=== PATIENT | female | born 1965 | race Caucasian/White ===

== ENCOUNTER → 2017-10-01 | Outpatient (CLI) | payer BC ==
--- NOTE | 2017-10-03 10:49 | MM ---
Reason for exam: screening (asymptomatic). Last mammogram was performed 1 year and 1 month ago. History: Took hormonal contraceptives for 3 years. Physical Findings: A clinical breast exam by your physician is recommended on an annual basis and results should be correlated with mammographic findings. MG Screening Mammo w CAD Bilateral CC and MLO view(s) were taken. Prior study comparison: August 21, 2016, bilateral MG screening mammo w CAD. August 14, 2015, bilateral MG screening mammo w CAD. There are scattered fibroglandular densities. There is chronic nodularity in the left breast. No significant changes when compared with prior studies. ASSESSMENT: Benign, BI-RAD 2 RECOMMENDATION: Routine screening mammogram of both breasts in 1 year.
== END | disposition home or self-care (01) ==
LOC: RADMAMWWP 13:52
PROVIDERS: ATTEND Obstetrics & Gynecology
DX: Z12.31 Encounter for screening mammogram for malignant neoplasm of breast (principal); Z13.820 Encounter for screening for osteoporosis

== ENCOUNTER → 2018-11-02 | Outpatient (CLI) | payer OTHER ==
--- NOTE | 2018-11-02 15:21 | BD ---
EXAMINATION TYPE: Axial Bone Density DATE OF EXAM: 11/02/2018 COMPARISON: NONE CLINICAL HISTORY: Height: 64 Weight: 196.0 FRAX RISK QUESTIONS: Alcohol (3 or more units per day): no Family History (Parent hip fracture): no Glucocorticoids (More than 3mos): no (Ex: prednisone, prednisolone, methylprednisolone, dexamethasone, and hydrocortisone). History of Fracture in Adulthood: no Secondary Osteoporosis: 1. Type 1 Diabetes: no 2. Hyperthyroidism: no 3. Menopause before 45: no 4. Malnutrition: no 5. Chronic liver disease: no Rheumatoid Arthritis: no Current Tobacco Use: yes RISK FACTORS HISTORY OF: Surgery to Spine/Hip(right/left)/Wrist (right/left): c-spine When: 15 years ago Family History of Osteoporosis: yes Active: yes Diet low in dairy products/other sources of calcium: yes Postmenopausal woman: age 51 MEDICATIONS: zocor, zoloft, adapex, prilosec, claratin d, vit d, bladder meds Additional History: EXAM MEASUREMENTS: Bone mineral densitometry was performed using the [employer] System. Bone mineral density as measured about the Lumbar spine is: ----- L1-L4(G/cm2): 1.306 T Score Values are as follows: ----- L2: 0.2 ----- L3: 0.6 ----- L4: 2.3 ----- L1-L4: 1.0 Bone mineral density : baseline Bone mineral density about the R hip (g/cm2): 1.037 Bone mineral density about the L hip (g/cm2): 1.019 T Score values are as follows: -----R Neck: 0.0 -----L Neck: -0.1 -----R Total: 0.7 -----L Total: 0.3 Bone mineral density : baseline IMPRESSION: No evidence for osteoporosis or osteopenia. NOTE: T-SCORE=SD OF THE YOUNG ADULT MEAN.
--- NOTE | 2018-11-03 14:40 | MM ---
Reason for exam: screening (asymptomatic). Last mammogram was performed 1 year and 1 month ago. History: Took hormonal contraceptives for 3 years. Physical Findings: A clinical breast exam by your physician is recommended on an annual basis and results should be correlated with mammographic findings. MG 3D Screening Mammo W/Cad Bilateral CC and MLO view(s) were taken. Prior study comparison: October 01, 2017, bilateral MG screening mammo w CAD. August 21, 2016, bilateral MG screening mammo w CAD. The breast tissue is heterogeneously dense. This may lower the sensitivity of mammography. There is chronic nodularity in the left breast. There is no discrete abnormality. ASSESSMENT: Negative, BI-RAD 1 RECOMMENDATION: Routine screening mammogram of both breasts in 1 year.
== END | disposition home or self-care (01) ==
LOC: RADMAMWWP 06:51
PROVIDERS: ATTEND Obstetrics & Gynecology
DX: Z12.31 Encounter for screening mammogram for malignant neoplasm of breast (principal); Z13.820 Encounter for screening for osteoporosis
CPT/HCPCS: 77063; 77067; 77080

== ENCOUNTER 2019-08-04 08:56 | Day surgery (SDC) | payer OTHER ==
[2019-08-03 09:32] VITALS: BMI 34.0
[~2019-08-04 08:56] MED LIST: LACTATED RINGERS 1,000 ML IV SCH; LIDOCAINE 1% 20 ML VIAL (10MG/ML) FOR IV START INTRADERMA PRN
[2019-08-04 09:08] VITALS: RESP 16; TEMP 97.4
[2019-08-04] MEDS ORDERED: PROPOFOL 10 MG/ML 20 ML VIAL IV ONE (09:19)
[2019-08-04] MEDS ORDERED: LIDOCAINE 1% INJ 10MG/ML (20 ML MDV) ONE (09:19)
--- NOTE | 2019-08-04 09:22 | P.GSHP ---
History of Present Illness H&P Date: 08/04/19 Chief Complaint: Colon polyps, screening 54-year-old female here today for colonoscopy. Last colonoscopy 5 years ago. Patient had a transverse colon polyp and rectal polyp. The transverse colon polyp was an adenoma. Patient otherwise doing well. No bowel complaints. Past Medical History Past Medical History: GERD/Reflux, Hyperlipidemia Additional Past Medical History / Comment(s): seasonal allergies History of Any Multi-Drug Resistant Organisms: None Reported Past Surgical History: Hernia Repair, Tubal Ligation, Uterine Ablation Additional Past Surgical History / Comment(s): neck surgery c5,6,7 with fusion plate and screws Past Anesthesia/Blood Transfusion Reactions: Motion Sickness, Postoperative Nausea & Vomiting (PONV) Smoking Status: Current every day smoker - Past Family History Mother Family Medical History: CVA/TIA Brother(s) Family Medical History: Blood Disorder Additional Family Medical History / Comment(s): hx hemorrhaging and brain bleeds Medications and Allergies Home Medications Medication Instructions Recorded Confirmed Type Loratadine-Pseudoeph 10-240 mg 1 each PO DAILY 05/11/14 08/04/19 History [Claritin-D 24 Hour] Omeprazole [PriLOSEC] 1 tab PO DAILY 05/11/14 08/03/19 History Sertraline [Zoloft] 100 mg PO DAILY 05/11/14 08/03/19 History Simvastatin [Zocor] 1 tab PO DAILY 05/11/14 08/03/19 History Oxybutynin Chloride [Oxybutynin 10 mg PO DAILY 08/03/19 08/03/19 History Chloride ER] Phentermine/Topiramate [Qsymia 1 cap PO QAM 08/03/19 08/03/19 History 11.25 mg-69 mg Capsule] Allergies Allergy/AdvReac Type Severity Reaction Status Date / Time Sulfa (Sulfonamide Allergy Rash/Hives Verified 08/04/19 09:06 Antibiotics) Surgical - Exam Vital Signs Temp Pulse Resp BP Pulse Ox 97.4 F L 67 16 156/88 99 08/04/19 09:06 08/04/19 09:06 08/04/19 09:06 08/04/19 09:06 08/04/19 09:06 Physical exam: General: Well-developed, well-nourished HEENT: Normocephalic, sclerae nonicteric Abdomen: Nontender, nondistended Extremities: No edema Neuro: Alert and oriented Assessment and Plan (1) Colon cancer screening Narrative/Plan: Will proceed with colonoscopy at this time Current Visit: No Status: Acute Code(s): Z12.11 - ENCOUNTER FOR SCREENING FOR MALIGNANT NEOPLASM OF COLON SNOMED Code(s): 444277316
--- NOTE | 2019-08-04 09:40 | P.PCN ---
Date of Procedure: 08/04/19 Procedure(s) Performed: PREOPERATIVE DIAGNOSIS: Screening, history of polyps POSTOPERATIVE DIAGNOSIS: sigmoid colon polyp, rectal polyps PROCEDURE: Colonoscopy With snare polypectomy ANESTHESIA: MAC SURGEON: Kenji Whalen M.D. SPECIMENS: polyps ENDOSCOPIC PROCEDURE: The patient was placed on the endoscopy table in the left decubitus position. The Olympus colonoscope was inserted into the anus and passed under direct visualization to the base of the cecum. The appendiceal orifice was visualized. From that point the scope was slowly withdrawn inspecting all surfaces carefully. There were no neoplastic inflammatory or polypoid lesions throughout the cecum, ascending, transverse, and descending colon. In the sigmoid colon there was a small polyp that was removed using a sterile cautery technique. In the rectum there were multiple superficial flat hyperplastic appearing polyps. 5-6 of these were removed using the snare with cautery technique. The remainder of the rectum was normal. The patient had extensive left-sided diverticulosis with some hypertrophy tortuosity and spasticity noted. Digital rectal examination was normal. The patient was taken to the recovery room in stable condition per anesthesia guidelines. RECOMMENDATIONS: await biopsy results. Anticipate follow-up colonoscopy 5 years. If rectal polyps are adenomatous may require short-term study.
[2019-08-04 09:56] VITALS: BP 118/80; PULSE 59
== END 2019-08-04 10:35 | disposition home or self-care (01) ==
LOC: ORWHC2ENDO 08:56
PROVIDERS: ATTEND Surgery
DX: Z12.11 Encounter for screening for malignant neoplasm of colon (principal); D12.5 Benign neoplasm of sigmoid colon; K62.1 Rectal polyp; K57.30 Diverticulosis of large intestine without perforation or abscess without bleeding; K58.9 Irritable bowel syndrome, unspecified; Q43.9 Congenital malformation of intestine, unspecified; E78.5 Hyperlipidemia, unspecified; F17.210 Nicotine dependence, cigarettes, uncomplicated; K21.9 Gastro-esophageal reflux disease without esophagitis; Z79.899 Other long term (current) drug therapy; Z86.010 Personal history of colon polyps; Z88.2 Allergy status to sulfonamides; J30.2 Other seasonal allergic rhinitis; Z98.51 Tubal ligation status; Z98.890 Other specified postprocedural states; Z98.1 Arthrodesis status; Z82.0 Family history of epilepsy and other diseases of the nervous system; Z83.2 Family history of diseases of the blood and blood-forming organs and certain disorders involving the immune mechanism
CPT/HCPCS: 88305; 45385; J2001; J2704

== ENCOUNTER → 2019-12-08 | Outpatient (CLI) | payer OTHER ==
--- NOTE | 2019-12-10 13:24 | MM ---
Reason for exam: screening (asymptomatic). Last mammogram was performed 1 year and 1 month ago. History: Patient is postmenopausal. Took hormonal contraceptives for 3 years. Physical Findings: A clinical breast exam by your physician is recommended on an annual basis and results should be correlated with mammographic findings. MG 3D Screening Mammo W/Cad Bilateral CC and MLO view(s) were taken. Prior study comparison: November 02, 2018, bilateral MG 3d screening mammo w/cad. October 01, 2017, bilateral MG screening mammo w CAD. There are scattered fibroglandular densities. There is chronic nodularity bilaterally. No significant changes when compared with prior studies. ASSESSMENT: Negative, BI-RAD 1 RECOMMENDATION: Routine screening mammogram of both breasts in 1 year.
== END | disposition home or self-care (01) ==
LOC: RADMAMWWP 15:30
PROVIDERS: ATTEND Obstetrics & Gynecology
DX: Z12.31 Encounter for screening mammogram for malignant neoplasm of breast (principal)
CPT/HCPCS: 77063; 77067

== ENCOUNTER → 2021-01-25 | Outpatient (CLI) | payer OTHER ==
--- NOTE | 2021-01-29 10:47 | MM ---
Reason for exam: screening (asymptomatic). Last mammogram was performed 1 year and 2 months ago. History: Patient is postmenopausal. Took hormonal contraceptives for 3 years. Physical Findings: A clinical breast exam by your physician is recommended on an annual basis and results should be correlated with mammographic findings. MG 3D Screening Mammo W/Cad Bilateral CC and MLO view(s) were taken. Prior study comparison: December 08, 2019, bilateral MG 3d screening mammo w/cad. November 02, 2018, bilateral MG 3d screening mammo w/cad. There are scattered fibroglandular densities. There is chronic nodularity bilaterally. No significant changes when compared with prior studies. ASSESSMENT: Benign, BI-RAD 2 RECOMMENDATION: Routine screening mammogram of both breasts in 1 year.
== END | disposition home or self-care (01) ==
LOC: RADMAMWWP 16:33
PROVIDERS: ATTEND Obstetrics & Gynecology
DX: Z12.31 Encounter for screening mammogram for malignant neoplasm of breast (principal); Z78.0 Asymptomatic menopausal state
CPT/HCPCS: 77063; 77067

== ENCOUNTER → 2021-10-25 | Outpatient (CLI) | payer BC ==
--- NOTE | 2021-10-25 15:35 | P.HPBAR ---
Bariatric H&P - History & Physicial H&P Date: 10/25/21 History & Physicial: Visit/CC: Patient initial contact: Initial weight: Initial weight in pounds: Height: 5 ft 4 in Initial BMI: Last weight: Current weight: 102.058 kg Current weight in pounds: Current BMI: [place] body weight (based on NIH guidelines): Excess body weight loss: The patient is a 56 year-old F who presents for Bariatric Assessment. Patient presents today to discuss surgical treatment of obesity. Patient is interested in sleeve gastrectomy. Current BMI 38.6. Patient suffers from hypertension, hypercholesterolemia, GERD, neck arthritis. Patient takes Prilosec daily and has adequate control of her heartburn symptoms. Denies DVT or dysphagia in the past. Patient quit smoking cigarettes 2 months ago. Patient's surgical history includes neck fusion tubal ligation inguinal hernia and uterine ablation. No cardiac history. Review of Systems The patient denies any acute changes in vision or hearing, no dysphagia or odynophagia, no chest pain or shortness of breath, no dysuria or hematuria, no headache, no runny nose, no rectal bleeding or melena, no unexplained weight loss Past Medical History Past Medical History: GERD/Reflux, Hyperlipidemia Additional Past Medical History / Comment(s): seasonal allergies History of Any Multi-Drug Resistant Organisms: None Reported Past Surgical History: Hernia Repair, Tubal Ligation, Uterine Ablation Additional Past Surgical History / Comment(s): neck surgery c5,6,7 with fusion plate and screws Past Anesthesia/Blood Transfusion Reactions: Motion Sickness, Postoperative Nausea & Vomiting (PONV) Past Psychological History: Anxiety, Depression Past Alcohol Use History: Occasional Additional Past Alcohol Use History / Comment(s): smoker 25 years <1ppd Past Drug Use History: None Reported - Past Family History Mother Family Medical History: CVA/TIA Brother(s) Family Medical History: Blood Disorder Additional Family Medical History / Comment(s): hx hemorrhaging and brain bleeds Surgical - Exam Physical exam: General: Well-developed, well-nourished HEENT: Normocephalic, sclerae nonicteric Abdomen: Nontender, nondistended Extremities: No edema Neuro: Alert and oriented Bariatric Assessment & Plan (1) Severe obesity (BMI 35.0-39.9) with comorbidity Narrative/Plan: 56-year-old female with severe obesity and associated coronary disease. Both sleeve gastrectomy and gastric bypass surgical options reviewed in detail with the patient including the expected weight loss and associated risks. Patient remains interested in sleeve gastrectomy. We discussed the increased risk of postoperative reflux because of her current history of GERD symptoms. Patient is aware that severe reflux post-sleeve gastrectomy is rare but possible and could necessitate conversion to gastric bypass. The importance of continuing the patient's smoking cessation was reviewed. We'll obtain medical clearance for the surgery and we'll proceed with upper endoscopy in the near future. Status: Acute Bariatric Checklist Checklist: Plan: Checklist: EGD: 1. Hiatal hernia: 2. H. Pylori: HgbA1c: Vitamin D: Smoking: Current every day smoker Primary care physician referral: Psychiatry clearance: Cardiology clearance: Sleep study: Diet journal: VTE risk score: VTE risk level: Rehab needs at discharge:
[2021-10-25 15:46] VITALS: BP 141/90; PULSE 66; TEMP 97.9; BMI 38.6
[2021-10-25 16:56] LABS: HCT 44.1 % (34.0-46.0); HGB 13.8 gm/dL (11.4-16.0); MCH 31.6 pg (25.0-35.0); MCHC 31.4 g/dL (31.0-37.0); MCV 100.6 fL (80.0-100.0); Platelet Count 285 k/uL (150-450); RBC 4.38 m/uL (3.80-5.40); RDW 13.1 % (11.5-15.5); WBC 8.1 k/uL (3.8-10.6)
[2021-10-25 23:46] LABS: African American GFR (CKD) 81.8 (60.0-200.0); Albumin 4.5 g/dL (3.8-4.9); Albumin/Globulin Ratio 1.58 (1.60-3.17); Anion Gap 12.6 mmol/L (10.00-18.00); BUN/Creat Ratio 15.91 Ratio (12.00-20.00); Blood Urea Nitrogen 14.3 mg/dL (9.0-27.0); Calcium 9.6 mg/dL (8.7-10.3); Carbon Dioxide 25.2 mmol/L (20.0-27.5); Globulin 2.9 g/dL (1.6-3.3); Non-African American GFR(CKD) 70.6 (60.0-200.0); Potassium 4.4 mmol/L (3.5-5.5); Total Bilirubin 0.2 mg/dL (0.30-1.20); Total Protein 7.4 g/dL (6.2-8.2)
[2021-10-26 00:19] LABS: Folate, Serum 10.2 ng/mL (4.40-31.00)
== END ==
LOC: BARWHC3 14:56
PROVIDERS: ATTEND Surgery
DX: E66.01 Morbid (severe) obesity due to excess calories (principal); E78.5 Hyperlipidemia, unspecified; F41.9 Anxiety disorder, unspecified; F32.A Depression, unspecified; F17.210 Nicotine dependence, cigarettes, uncomplicated; E78.00 Pure hypercholesterolemia, unspecified; Z68.38 Body mass index [BMI] 38.0-38.9, adult; Z88.2 Allergy status to sulfonamides
CPT/HCPCS: 80053; 82306; 82607; 82746; 83540; 84425; 85027; 99211

== ENCOUNTER 2022-02-26 10:08 | Day surgery (SDC) | payer BC ==
[2022-02-25 10:38] VITALS: BMI 37.0
[~2022-02-26 10:08] MED LIST changes: +LIDOCAINE 1% (10MG/ML) FOR IV START INTRADERMA PRN; -LIDOCAINE 1% 20 ML VIAL (10MG/ML) FOR IV START INTRADERMA PRN
[2022-02-26 10:44] VITALS: TEMP 98
[2022-02-26] MEDS ORDERED: LIDOCAINE 2% INJ 20 MG/ML (2 ML VIAL) ONE (11:16)
[2022-02-26] MEDS ORDERED: PROPOFOL 10 MG/ML 20 ML VIAL IV ONE (11:16)
--- NOTE | 2022-02-26 11:17 | P.GSHP ---
History of Present Illness H&P Date: 02/26/22 Chief Complaint: GERD, presurgical 56-year-old female here today for upper endoscopy. Patient with history of reflux and is being evaluated for possible sleeve gastrectomy. No dysphagia. Past Medical History Past Medical History: GERD/Reflux, Hyperlipidemia, Hypertension Additional Past Medical History / Comment(s): seasonal allergies History of Any Multi-Drug Resistant Organisms: None Reported Past Surgical History: Hernia Repair, Tubal Ligation, Uterine Ablation Additional Past Surgical History / Comment(s): neck surgery c5,6,7 with fusion plate and screws Past Anesthesia/Blood Transfusion Reactions: Motion Sickness, Postoperative Nausea & Vomiting (PONV) Past Psychological History: Anxiety, Depression Smoking Status: Current some day smoker Past Alcohol Use History: Occasional Past Drug Use History: None Reported - Past Family History Mother Family Medical History: CVA/TIA Brother(s) Family Medical History: Blood Disorder Additional Family Medical History / Comment(s): hx hemorrhaging and brain bleeds Medications and Allergies Home Medications Medication Instructions Recorded Confirmed Type Loratadine-Pseudoeph 10-240 mg 1 each PO DAILY 05/11/14 02/25/22 History [Claritin-D 24 Hour] Omeprazole [PriLOSEC] 1 tab PO DAILY 05/11/14 02/25/22 History Sertraline [Zoloft] 2 tab PO DAILY 05/11/14 02/25/22 History Simvastatin [Zocor] 1 tab PO DAILY 05/11/14 02/25/22 History Oxybutynin Chloride [Oxybutynin 10 mg PO DAILY 08/03/19 02/25/22 History Chloride ER] hydroCHLOROthiazide 25 mg PO DAILY 10/25/21 02/25/22 History Allergies Allergy/AdvReac Type Severity Reaction Status Date / Time Sulfa (Sulfonamide Allergy Rash/Hives Verified 02/26/22 10:38 Antibiotics) Surgical - Exam Vital Signs Temp Pulse Resp BP Pulse Ox 98 F 77 14 157/87 97 02/26/22 10:41 02/26/22 10:41 02/26/22 10:41 02/26/22 10:41 02/26/22 10:41 Physical exam: General: Well-developed, well-nourished HEENT: Normocephalic, sclerae nonicteric Abdomen: Nontender, nondistended Extremities: No edema Neuro: Alert and oriented Assessment and Plan (1) GERD (gastroesophageal reflux disease) Narrative/Plan: Will proceed with upper endoscopy Current Visit: Yes Status: Acute Code(s): K21.9 - GASTRO-ESOPHAGEAL REFLUX DISEASE WITHOUT ESOPHAGITIS SNOMED Code(s): 051196141
--- NOTE | 2022-02-26 11:26 | P.PCN ---
Date of Procedure: 02/26/22 Procedure(s) Performed: Preoperative Dx: GERD, presurgical Postoperative Dx: Mild gastritis, hiatal hernia Procedure: EGD with Bx Anesthesia: Sedation Endoscopist: Dr. Whalen Specimens: Antrum Endoscopic Procedure: The patient was on the endoscopy table in the left decubitus position. The Olympus gastroscope was inserted into the oropharynx and passed under direct visualization to the region of the third portion of the duodenum. From that point the scope was slowly withdrawn inspecting all surfaces carefully. There were no neoplastic inflammatory or polypoid lesions throughout the duodenum. The pylorus was widely patent. The stomach was carefully inspected. There was mild gastritis. A biopsy of the antrum took place to rule out H. pylori. Retroflexion revealed a small sliding hiatal hernia. The GE junction was present 1.5-2 cm above the diaphragmatic hiatus. The remainder the esophagus was examined appeared normal. The patient was then taken to the recovery room in stable condition per anesthesia guidelines. Recommendations: Resume diet. Continue bariatric workup. Continue smoking cessation attempts.
[2022-02-26 11:35] VITALS: RESP 16
[2022-02-26 11:51] VITALS: BP 139/82; PULSE 65
== END 2022-02-26 12:03 | disposition home or self-care (01) ==
LOC: ORWHC2ENDO 10:08
PROVIDERS: ATTEND Surgery
DX: K29.50 Unspecified chronic gastritis without bleeding (principal); K21.00 Gastro-esophageal reflux disease with esophagitis, without bleeding; K44.9 Diaphragmatic hernia without obstruction or gangrene; E78.5 Hyperlipidemia, unspecified; F17.200 Nicotine dependence, unspecified, uncomplicated; F32.A Depression, unspecified; F41.9 Anxiety disorder, unspecified; I10 Essential (primary) hypertension; Z88.2 Allergy status to sulfonamides
CPT/HCPCS: 43239; 88305; J2704; J2001

== ENCOUNTER → 2022-03-19 | Outpatient (CLI) | payer BC ==
[2022-03-19 14:56] VITALS: BP 128/69; PULSE 77; RESP 16; TEMP 98; BMI 38.2
--- NOTE | 2022-03-19 15:22 | P.BASOAP ---
Subjective Progress Note Date: 03/19/22 Principal diagnosis: Morbid obesity 56-year-old female returns after recent EGD. Upper endoscopy showed gastritis and small hiatal hernia. Patient has no new changes to her prior history and physical. She is still smoking at this time. States she is very close to quitting. She takes Prilosec daily. Objective - Vital Signs Vital signs: Vital Signs Temp 98 F 03/19/22 14:53 Pulse 77 03/19/22 14:53 Resp 16 03/19/22 14:53 BP 128/69 03/19/22 14:53 Pulse Ox FiO2 Intake & Output 03/18/22 03/19/22 03/19/22 18:59 06:59 18:59 Weight 101.151 kg - Exam Abdomen: Soft, nontender, nondistended Assessment/Plan (1) Severe obesity (BMI 35.0-39.9) with comorbidity Narrative/Plan: 56-year-old female with morbid obesity. Recent findings of gastritis and hiatal hernia. Surgical consent form reviewed in detail. All questions answered. We'll tentatively proceed with laparoscopic da Brayan-assisted sleeve gastrectomy with repair hiatal hernia, possible open. Patient will require preoperative nicotine testing. The risks of bleeding, infection, stenosis, stricture, leak, abscess, fistula formation, peritonitis, poor weight loss, reflux, vomiting, conversion to an open procedure, aborting sleeve gastrectomy, [place], PE, DVT, and were discussed. The patient understands and wishes to proceed. Plan: Date: 03/19/22 Initial Weight: 101.151 kg Initial BMI: 38.2 Current Weight: 101.151 kg Current BMI: 38.2 Type of Surgery: Total Volume in Band: Previous Volume: Volume Removed: Volume Added: Band Size:
== END ==
LOC: BARWHC3 14:40
PROVIDERS: ATTEND Surgery
DX: E66.01 Morbid (severe) obesity due to excess calories (principal); K29.70 Gastritis, unspecified, without bleeding; K44.9 Diaphragmatic hernia without obstruction or gangrene; Z68.38 Body mass index [BMI] 38.0-38.9, adult; Z88.2 Allergy status to sulfonamides
CPT/HCPCS: 99211

== ENCOUNTER → 2022-03-21 | Outpatient (CLI) | payer BC ==
--- NOTE | 2022-03-23 13:04 | MM ---
Reason for Exam: Screening (asymptomatic). Last mammogram was performed 1 year(s) and 2 month(s) ago. Patient History: Menarche at age 11. First Full-Term at age 28. Late child-bearing (after 28). Postmenopausal. Patient used Hormonal Contraceptives for 3 years. Risk Values: Dee 5 year model risk: 1.8%. NCI Lifetime model risk: 10.5%. Prior Study Comparison: 11/02/2018 Bilateral Screening Mammogram, [facility]. 12/08/2019 Bilateral Screening Mammogram, [facility]. 01/25/2021 Bilateral Screening Mammogram, [facility]. Tissue Density: There are scattered fibroglandular densities. Findings: Analyzed By CAD. Chronic nodularity right breast. There is no suspicious group of microcalcifications or new suspicious mass in either breast. Overall Assessment: Benign, BI-RAD 2 Management: Screening Mammogram of both breasts in 1 year. 1. Patient should continue monthly self breast exams. 2. A clinical breast exam by your physician is recommended on an annual basis and results should be correlated with mammographic findings. A negative mammogram should not preclude additional follow-up of suspicious palpable abnormalities. Electronically signed and approved by: Eleni Mercedes M.D. Radiologist
== END | disposition home or self-care (01) ==
LOC: RADMAMWWP 14:43
PROVIDERS: ATTEND Obstetrics & Gynecology
DX: Z12.31 Encounter for screening mammogram for malignant neoplasm of breast (principal); Z78.0 Asymptomatic menopausal state
CPT/HCPCS: 77063; 77067

== ENCOUNTER → 2022-03-25 | Outpatient (CLI) | payer BC ==
[2022-03-25 14:07] VITALS: BMI 37.9
== END ==
LOC: BARWHC3 08:37
PROVIDERS: ATTEND Surgery
DX: E66.01 Morbid (severe) obesity due to excess calories (principal); Z71.3 Dietary counseling and surveillance; F17.200 Nicotine dependence, unspecified, uncomplicated; Z68.37 Body mass index [BMI] 37.0-37.9, adult; Z88.2 Allergy status to sulfonamides
CPT/HCPCS: 97804

== ENCOUNTER 2022-06-03 06:19 | Inpatient (IN) | payer BC ==
[2022-05-30 14:35] VITALS: BMI 38.2
[~2022-06-03 06:19] MED LIST changes: +ACETAMINOPHEN TAB 500 MG TAB PO PRN; +DEXAMETHASONE SOD PHOSPHATE 4 MG/ML 1 ML VIAL IV ONE; +ENOXAPARIN 40 MG/0.4 ML SYRINGE SQ PRN; -LIDOCAINE 1% (10MG/ML) FOR IV START INTRADERMA PRN; +ONDANSETRON 4 MG/2 ML VIAL IVP ONE; +ONDANSETRON 4 MG/2 ML VIAL IVP PRN
[2022-06-03] MEDS ORDERED: BUPIVACAIN-EPI 0.25%-1:200,000 30 ML VIAL SQ ONE ×3 (07:27→08:07)
--- NOTE | 2022-06-03 07:35 | P.GSHP ---
History of Present Illness H&P Date: 06/03/22 Chief Complaint: Morbid obesity 57-year-old female presents for elective laparoscopic sleeve gastrectomy. Was first seen for weight loss surgery and October. Patient suffers from hypertension and hypercholesterolemia GERD and arthritis. Patient has history of tobacco use although quit late last year. Denies history of DVT or dysphagia. Recent EGD showed mild gastritis and small hiatal hernia. Past Medical History Past Medical History: Asthma, GERD/Reflux, Hyperlipidemia, Hypertension Additional Past Medical History / Comment(s): seasonal allergies,mild asthma per Dr Melida Whalen's medical clearance letter. History of Any Multi-Drug Resistant Organisms: None Reported Past Surgical History: Hernia Repair, Tubal Ligation, Uterine Ablation Additional Past Surgical History / Comment(s): neck surgery c5,6,7 with fusion plate and screws Past Anesthesia/Blood Transfusion Reactions: Motion Sickness, Postoperative Nausea & Vomiting (PONV) Additional Past Anesthesia/Blood Transfusion Reaction / Comment(s): no hx blood transfusion Smoking Status: Current some day smoker, Former smoker - Past Family History Mother Family Medical History: CVA/TIA Brother(s) Family Medical History: Blood Disorder Additional Family Medical History / Comment(s): hx hemorrhaging and brain bleeds- Medications and Allergies Home Medications Medication Instructions Recorded Confirmed Type Loratadine-Pseudoeph 10-240 mg 1 each PO DAILY 05/11/14 06/03/22 History [Claritin-D 24 Hour] Omeprazole [PriLOSEC] 20 mg PO QAM 05/11/14 06/03/22 History Sertraline [Zoloft] 200 mg PO QAM 05/11/14 06/03/22 History Simvastatin [Zocor] 40 mg PO HS 05/11/14 06/03/22 History Oxybutynin Chloride [Oxybutynin 10 mg PO HS 08/03/19 06/03/22 History Chloride ER] hydroCHLOROthiazide 25 mg PO QAM 10/25/21 06/03/22 History Allergies Allergy/AdvReac Type Severity Reaction Status Date / Time Sulfa (Sulfonamide Allergy Rash/Hives Verified 06/03/22 06:56 Antibiotics) Surgical - Exam Vital Signs Temp Pulse Resp BP Pulse Ox 97.0 F L 70 18 152/89 96 06/03/22 06:47 06/03/22 06:47 06/03/22 06:47 06/03/22 06:47 06/03/22 06:47 Physical exam: General: Well-developed, well-nourished HEENT: Normocephalic, sclerae nonicteric Abdomen: Nontender, nondistended Extremities: No edema Neuro: Alert and oriented Assessment and Plan (1) Severe obesity (BMI 35.0-39.9) with comorbidity Narrative/Plan: 57-year-old female with severe obesity and comorbidities. We'll proceed with laparoscopic da Brayan assisted sleeve gastrectomy with repair hiatal hernia, possible open at this time. The risks of bleeding, infection, stenosis, stricture, leak, abscess, fistula formation, peritonitis, poor weight loss, reflux, vomiting, conversion to an open procedure, aborting sleeve gastrectomy, [place], PE, DVT, and were discussed. The patient understands and wishes to proceed. Current Visit: No Status: Acute Code(s): E66.01 - MORBID (SEVERE) OBESITY DUE TO EXCESS CALORIES SNOMED Code(s): [id number]
[2022-06-03] MEDS ORDERED: GLYCOPYRROLATE 0.2 MG/ML 2 ML VIAL ONE (07:42)
[2022-06-03] MEDS ORDERED: fentaNYL (PF) 50 MCG/ML 2 ML AMP ONE (07:42)
[2022-06-03] MEDS ORDERED: hydrALAZINE HCL 20 MG/ML 1 ML VIAL ONE (07:42)
[2022-06-03] MEDS ORDERED: PROPOFOL 10 MG/ML 20 ML VIAL IV ONE (07:42)
[2022-06-03] MEDS ORDERED: NEOSTIGMINE 1 MG/ML 10 ML VIAL ONE (07:42)
[2022-06-03] MEDS ORDERED: ROCURONIUM 10 MG/ML (5 ML VIAL) IV ONE (07:42)
[2022-06-03] MEDS ORDERED: MIDAZOLAM 2 MG/2 ML VIAL ONE (07:42)
[2022-06-03] MEDS ORDERED: SUCCINYLCHOLINE CHLORIDE 200 MG/10 ML VIAL IV ONE (07:42)
[2022-06-03] MEDS ORDERED: LIDOCAINE 2% INJ 20 MG/ML (2 ML VIAL) ONE (07:42)
[2022-06-03] MEDS ORDERED: diphenhydrAMINE 50 MG/ML 1 ML VIAL IVP PRN (10:15)
[2022-06-03] MEDS ORDERED: NALOXONE 0.4 MG/ML 1 ML VIAL IV PRN (10:15)
--- NOTE | 2022-06-03 10:21 | P.OP ---
Date of Procedure: 06/03/22 Procedure(s) Performed: PREOPERATIVE DIAGNOSIS: Morbid obesity, GERD, hypertension, hypercholesterolemia, hiatal hernia POSTOPERATIVE DIAGNOSIS: Same PROCEDURE: Da Brayan assisted laparoscopic sleeve gastrectomy with repair I'll hernia SURGEON: Koby EBL: Minimal ANESTHESIA: General COMPLICATIONS: None OPERATIVE PROCEDURE: Patient was placed in the operating table in the supine position. The patient was then placed under general anesthesia at that time. The abdomen was prepped and draped in the usual sterile fashion. A 5 mm optical trocar was placed in the left upper quadrant 20 cm inferior to the xiphoid process. Insufflation took place up to 15 mmHg. A 5 mm subxiphoid incision was made and the medium Carlos retractor was used to elevate the left lobe of liver anteriorly. This was held in place using the fixed arm retractor. An additional 12 mm trocar was placed in the right paramedian location and 2 additional 8 mm trochars were placed in the left upper quadrant one medial and one lateral to the initially placed optical trocar. All of these trochars were placed along the same plane. The initial 5 was then switched to an 8 mm trocar. The robot was then docked appropriately. The 8 mm camera was placed in the left paramedian trocar site down viewing. A fenestrated bipolar was placed in arm 1, arm 3 had the vessel sealer, arm 4 had the small grasper retractor. The patient had some light adhesions between the omentum and the left subcostal location that were easily lysed using the vessel sealer. The patient's hiatus was inspected and did reveal a small hiatal hernia. The short gastric vasculature were divided using the vessel sealer. This dissection took place distally until we were 4 cm from the pylorus. The posterior adhesions were divided as well. The dissection then took place proximally along the stomach until the posterior short gastrics were divided and the fundus of the stomach was fully mobilized. The left luci was well visualized at that point. The gastrohepatic ligament was then divided. The right luci was dissected and the hiatal hernia was better visualized at that time. The stomach was reduced back into the abdominal cavity. Circumferentially the hernia sac was reduced. At that time a nonabsorbable 20V lock suture was used to reapproximate the luci posteriorly. Took place without difficulty. Following that the blunt tipped 40-Danish bougie dilator was advanced into the stomach and advanced all the way to the prepyloric location. The patient's stomach by palpation seemed to be of average thickness. No buttressing was utilized. Multiple firings of the da Brayan stapler took place. The first 2 loads were green with the remaining loads being blue. The stomach was then placed in the right upper quadrant after it was fully excised. The oral gastric tube was reinserted. The stomach was insufflated with approximately 100 mL of methylene blue. No evidence of leak or obstruction was seen. Tisseel fibrin glue was then used along the length of the staple line. The robot was then undocked. The da Brayan laparoscope was used and the stomach was removed from the 12 mm trocar site without difficulty. The fascia at the 12mm site was closed using [id number] 0 Vicryl sutures with the laparoscopic suture passer and Sergo Geremias technique. The insufflation was evacuated. The skin at all 5 incisions were closed using 4-0 Monocryl sutures. Skin glue was then applied. DISPOSITION: Stable to recovery room
[2022-06-03] MEDS: HYDROmorphone 0.5 MG/0.5 ML SYRINGE IVP PRN ×4 (10:36→14:40)
[2022-06-03] MEDS ORDERED: LACTATED RINGERS 1,000 ML IV ONE (11:03)
--- NOTE | 2022-06-03 14:14 | P.CONS ---
History of Present Illness - Reason for Consult Consult date: 06/03/22 Medical management postop sleep gastrectomy, history of hypertension - History of Present Illness This is a pleasant 57-year-old female who was recently admitted under surgical services and underwent laparoscopic sleeve gastrectomy with Dr. Rose and is in postop recovery. Patient reports she follows with Dr. Colleen rose as her primary care provider with a past medical history of asthma, gastroesophageal reflux disease, hyperlipidemia, hypertension. Patient reports she quit smoking earlier this year and occasionally drinks alcohol socially and denies any other illicit drug use. Patient currently maintained on hydrochlorothiazide for blood pressure control and will hold and monitor closely for any postoperative hypotension. Recommend repeat labs in the a.m. and if continuing to be hypertensive will resume medications. Patient is currently nothing by mouth except for ice chips per surgical protocol and diet will be advanced per surgery recommendations. Recommend incentive spirometer use at least 10 times every hour while awake and we will continue to follow with general surgery during hospitalization. Other appropriate home medications have been resumed. Review Of Systems: Constitutional: No fever, no chills, no night sweats. No weight change. No weakness, fatigue or lethargy. No daytime sleepiness. EENT: No headache. No blurred vision or double vision, no loss of vision. No loss of Hearing, no ringing in the ears, no dizziness. No nasal drainage or congestion. No epistaxis. No sore throat. Lungs: No shortness of breath, cough, no sputum production. No wheezing. Cardiovascular: No chest pain, no lower extremity edema. No palpitations. No paroxysmal nocturnal dyspnea. No orthopnea. No lightheadedness or dizziness. No syncopal episodes. Abdominal: Reports abdominal pain. No nausea, vomiting. No diarrhea. No constipation. No bloody or tarry stools.. No loss of appetite. Genitourinary: No dysuria, increased frequency, urgency. No urinary retention. Musculoskeletal: No myalgias. No muscle weakness, no gait dysfunction, no frequent falls. No back pain. No neck pain. Integumentary: No wounds, no lesions. No rash or pruritus. No unusual bruising. No change in hair or nails. Neurologic: No aphasia. No facial droop. No change in mentation. No head injury. No headache. No paralysis. No paresthesia. Psychiatric: No depression. No anxiety. No mood swings. Endocrine: No abnormal blood sugars. No weight change. No excessive sweating or thirst. No cold intolerance. PHYSICAL EXAMINATION: GENERAL: The patient is alert and oriented x4, Well developed, well nourished. Obese HEENT: Pupils are round and equally reacting to light. EOMI. no scleral icterus. No conjunctival pallor. Normocephalic, atraumatic. No pharyngeal erythema. No thyromegaly. CARDIOVASCULAR: S1 and S2 muffled PULMONARY: diminished breath sounds bilaterally otherwise clear to auscultation with no wheezing or rhonchi noted. ABDOMEN: soft. tender on exam. obese. non-distended, sluggish bowel sounds. No palpable organomegaly. MUSCULOSKELETAL: No joint swelling or deformity. EXTREMITIES: No cyanosis, clubbing, or pedal edema. NEUROLOGICAL: Gross neurological examination did not reveal any focal deficits. Diffuse weakness as patient is postop recovery on exam SKIN: No rashes. Assessment: Status post laparoscopic sleeve gastrectomy postop day 0 3 of asthma Gastroesophageal reflux disease Hyperlipidemia Hypertension History of anxiety/depression GI prophylaxis DVT prophylaxis Full code Plan: Recommend continue with current medications and appropriate home medications have been resumed. Patient does take hydrochlorothiazide which recommend holding and will monitor closely and follow-up repeat labs in the a.m. and possibly resume outpatient blood pressure is elevated Recommend repeat labs in the a.m. Continue with nothing by mouth with just ice chips per surgery recommendations and advance only as tolerated and per surgery Recommend incentive spirometer at least 10 times every hour while awake We will continue to monitor with general surgery Dr. Rose during hospitalization and would like to thank you for this consultation The impression and plan of care has been dictated by Gail Katz, nurse practitioner as directed. Dr. Vanesa MD I have performed a history and examination and MDM of this patient, discussed the same with the dictator, and agree with the dictator's assessment and plan as written ,documented as a scribe. Based on total visit time, I have performed more than 50% of the visit. Any additional findings or plans will be noted. Past Medical History Past Medical History: Asthma, GERD/Reflux, Hyperlipidemia, Hypertension Additional Past Medical History / Comment(s): seasonal allergies,mild asthma per Dr Melida Rose's medical clearance letter. History of Any Multi-Drug Resistant Organisms: None Reported Past Surgical History: Hernia Repair, Tubal Ligation, Uterine Ablation Additional Past Surgical History / Comment(s): neck surgery c5,6,7 with fusion plate and screws Past Anesthesia/Blood Transfusion Reactions: Motion Sickness, Postoperative Nausea & Vomiting (PONV) Additional Past Anesthesia/Blood Transfusion Reaction / Comm: no hx blood transfusion Smoking Status: Current some day smoker, Former smoker - Past Family History Mother Family Medical History: CVA/TIA Brother(s) Family Medical History: Blood Disorder Additional Family Medical History / Comment(s): hx hemorrhaging and brain bleeds- Medications and Allergies Home Medications Medication Instructions Recorded Confirmed Type Loratadine-Pseudoeph 10-240 mg 1 each PO DAILY 05/11/14 06/03/22 History [Claritin-D 24 Hour] Omeprazole [PriLOSEC] 20 mg PO QAM 05/11/14 06/03/22 History Sertraline [Zoloft] 200 mg PO QAM 05/11/14 06/03/22 History Simvastatin [Zocor] 40 mg PO HS 05/11/14 06/03/22 History Oxybutynin Chloride [Oxybutynin 10 mg PO 08/03/19 06/03/22 History Chloride ER] hydroCHLOROthiazide 25 mg PO QAM 10/25/21 06/03/22 History Allergies Allergy/AdvReac Type Severity Reaction Status Date / Time Sulfa (Sulfonamide Allergy Rash/Hives Verified 06/03/22 06:56 Antibiotics) Physical Exam Vitals: Vital Signs Temp Pulse Pulse Resp BP Pulse Ox 06/03/22 12:30 68 16 142/78 98 06/03/22 12:00 66 16 145/73 98 06/03/22 11:45 73 16 142/70 98 06/03/22 11:30 65 16 146/70 98 06/03/22 11:16 66 16 152/74 98 06/03/22 11:02 70 16 153/73 98 06/03/22 10:31 78 16 154/78 98 06/03/22 10:13 98.4 F 84 18 137/71 96 06/03/22 06:47 97.0 F L 70 18 152/89 96 Intake and Output 06/02/22 06/03/22 06/03/22 22:59 06:59 14:59 Intake Total 200 825 Output Total 10 Balance 200 815 Intake: IV 200 825 Output: Estimated Blood Loss 10 Other: Weight 97.8 kg
[2022-06-03] MEDS: ONDANSETRON 4 MG/2 ML VIAL IVP PRN (16:01)
[2022-06-03] MEDS: ALBUTEROL NEBULIZED 2.5 MG/3 ML INHALATION SCH ×3 (16:29→20:47)
[2022-06-03] MEDS: HYOSCYAMINE ORAL DROPS 1.875 MG/15 ML BOTTLE PO PRN ×2 (17:20→22:23)
[2022-06-03] MEDS: SIMETHICONE 40 MG/0.6 ML DROPS 2,000 MG/30 ML BOTTLE PO PRN (17:21)
[2022-06-03] MEDS: ACETAMINOPHEN IV (For NPO) 1,000 MG in EMPTY BAG 1 BAG IVPB SCH (18:02)
[2022-06-03] MEDS: ENOXAPARIN 40 MG/0.4 ML SYRINGE SQ SCH (20:23)
[2022-06-03] MEDS: 0.9% NACL WITH KCL 20 MEQ/L 1,000 ML IV SCH (22:10)
[2022-06-03] MEDS: HYDROmorphone 1 MG/ML 1 ML SYRINGE IVP PRN (22:16)
[2022-06-03] MEDS: OXYBUTYNIN 10 MG TAB.ER.24 PO SCH (22:41)
[2022-06-03] MEDS: ATORVASTATIN 20 MG TAB PO SCH (22:41)
[2022-06-04] MEDS: ACETAMINOPHEN IV (For NPO) 1,000 MG in EMPTY BAG 1 BAG IVPB SCH ×5 (00:06→23:19)
[2022-06-04] MEDS: HYDROmorphone 1 MG/ML 1 ML SYRINGE IVP PRN (02:12)
[2022-06-04] MEDS: ONDANSETRON 4 MG/2 ML VIAL IVP PRN ×2 (02:19→11:53)
[2022-06-04] MEDS: SIMETHICONE 40 MG/0.6 ML DROPS 2,000 MG/30 ML BOTTLE PO PRN ×3 (05:36→18:13)
[2022-06-04] MEDS: 0.9% NACL WITH KCL 20 MEQ/L 1,000 ML IV SCH ×5 (07:07→17:19)
[2022-06-04] MEDS: ALBUTEROL NEBULIZED 2.5 MG/3 ML INHALATION SCH ×4 (07:46→21:15)
[2022-06-04] MEDS: KETOROLAC 15 MG/ML 1 ML VIAL IVP SCH ×4 (08:43→23:18)
[2022-06-04] MEDS: ENOXAPARIN 40 MG/0.4 ML SYRINGE SQ SCH ×2 (08:48→20:02)
[2022-06-04 08:50] LABS: Basophils # (A) 0.03 X 10*3/uL (0.00-0.10); Basophils % (A) 0.3 %; Eosinophils # (A) 0.02 X 10*3/uL (0.04-0.35); Eosinophils % (A) 0.2 %; HCT 41.4 % (37.2-46.3); Immature Grans, Automated 0.3 %; Lymphocytes # (A) 1.96 X 10*3/uL (0.90-5.00); Lymphocytes % (A) 19.4 %; MCH 31.3 pg (27.0-32.0); MCHC 31.4 g/dL (32.0-37.0); MCV 99.8 fL (80.0-97.0); Mean Platelet Volume 10.7 fL (9.5-12.2); Monocytes % (A) 6.9 %; NRBC Per 100 WBC 0 /100 WBCS (0.0-0.0); Neutrophils # (A) 7.36 X 10*3/uL (1.80-7.70); Neutrophils % (A) 72.9 %; Platelet Count 218 X 10*3/uL (140-440); RBC 4.15 X 10*6/uL (4.10-5.20)
[2022-06-04] MEDS ORDERED: NON FORMULARY DRUG (Omeprazole [Prilosec] 20 MG Capsule.Dr) PO SCH (09:00)
[2022-06-04] MEDS ORDERED: PANTOPRAZOLE 40 MG/10 ML VIAL IV SCH (09:00)
[2022-06-04 09:47] LABS: African American GFR (CKD) 103.8 (60.0-200.0); Anion Gap 6.4 mmol/L (10.00-18.00); Blood Urea Nitrogen 11.3 mg/dL (9.0-27.0); Calcium 9.1 mg/dL (8.7-10.3); Carbon Dioxide 32.1 mmol/L (20.0-27.5); Non-African American GFR(CKD) 89.6 (60.0-200.0); Phosphorus 3.9 mg/dL (2.4-5.1); Potassium 5.5 mmol/L (3.5-5.5)
[2022-06-04 09:52] LABS: Magnesium 1.9 mg/dL (1.5-2.4)
[2022-06-04] MEDS: SCOPOLAMINE 1 MG/72 HR PATCH TRANSDERM SCH (10:03)
--- NOTE | 2022-06-04 10:10 | FL ---
EXAMINATION TYPE: FL UGI DATE OF EXAM: 06/04/2022 COMPARISON: NONE HISTORY: Post op bariatric surgery. TECHNIQUE: A single contrast UGI study is performed. A total of 29 seconds of fluoroscopic time was utilized during procedure and T2 images obtained. 2 ounces of Isovue-370 for use. FINDINGS: The esophagus shows normal motility and emptying into the stomach. No evidence of hiatal hernia or s tricture noted. Contrast easily flows through the esophagus and through the stomach into the small janet wel. Postsurgical changes of the stomach from gastric sleeve. No evidence of contrast leak. The duodenal bulb, sweep, and proximal small bowel loops are unremarkable. IMPRESSION: Postsurgical changes from gastric sleeve without evidence of leak.
[2022-06-04] MEDS: SERTRALINE 100 MG TAB PO SCH (10:51)
[2022-06-04] MEDS ORDERED: MAG HYDROX/AL HYDROX/SIMETH 30 ML CUP PO PRN (11:40)
[2022-06-04] MEDS: HYOSCYAMINE ORAL DROPS 1.875 MG/15 ML BOTTLE PO PRN ×2 (11:47→18:12)
--- NOTE | 2022-06-04 11:59 | P.PN ---
Subjective Progress Note Date: 06/04/22 CHIEF COMPLAINT: Morbid obesity HISTORY OF PRESENT ILLNESS: Patient postop day #1 status post da Brayan-assisted laparoscopic sleeve gastrectomy with repair of hiatal hernia. Upper GI shows no evidence of leak. Patient complaining of pain on the right lower side of the abdomen. She is having some nausea this morning. Denies any flatus or bowel movement. Afebrile. WBC 10.10 Hgb 13 platelets 218 sodium 143 potassium 5.5 creatinine 0.7 magnesium 1.9 PHYSICAL EXAM: VITAL SIGNS: Reviewed. GENERAL: Well-developed in no acute distress. HEENT: No sclera icterus. Extraocular movements grossly intact. Moist buccal mucosa. Head is atraumatic, normocephalic. ABDOMEN: Soft. Nondistended. Abdominal binder in place NEUROLOGIC: Alert and oriented. Cranial nerves II through XII grossly intact. ASSESSMENT: 1. Morbid obesity 2. GERD 3. Hypertension 4. Hypercholesterolemia 5. Hiatal hernia PLAN: -Start bariatric clear liquid diet -Continue IV fluids -Add Toradol for pain -Continue IV Tylenol -Add scopolamine patch for nausea -Encourage patient to ambulate -Encourage patient to use incentive spirometer -GI prophylaxis Protonix and DVT prophylaxis Lovenox Physician [employer] note has been reviewed by physician. Signing provider agrees with the documented findings, assessment, and plan of care. I have personally seen and examined the patient, reviewed the MEDICAL STAFF DIRECTOR /PAs history, exam and MDM and agree with the assessment and plan as written. Based on total visit time, I have performed more than 50% of the visit. As above: Patient doing better today. She was nauseated earlier. Toradol has helped with pain. She is sitting up in the bed. She has been ambulating. Tolerating liquids. Upper GI noted. Continue anti-medics. Monitor fluid intake. Objective - Vital Signs Vital signs: Vital Signs Temp 98.5 F 06/04/22 07:57 Pulse 61 06/04/22 07:57 Resp 16 06/04/22 08:00 BP 115/76 06/04/22 07:57 Pulse Ox 98 06/04/22 07:57 FiO2 Intake & Output 06/03/22 06/04/22 06/04/22 18:59 06:59 18:59 Intake Total 825 Output Total 110 500 Balance 715 -500 Weight 97.8 kg Intake: IV 825 Output: Urine 100 500 Estimated Blood Loss 10 Other: Voiding Method Toilet # Voids 1 1 - Labs CBC & Chem 7: 06/04/22 05:28 06/04/22 05:28 Labs: Abnormal Lab Results - Last 24 Hours (Table) 06/04/22 06/04/22 Range/Units 05:28 05:28 WBC 10.10 H (4.50-10.00) X 10*3/uL MCV 99.8 H (80.0-97.0) fL MCHC 31.4 L (32.0-37.0) g/dL Eosinophils # 0.02 L (0.04-0.35) X 10*3/uL Carbon Dioxide 32.1 H (20.0-27.5) mmol/L Anion Gap 6.40 L (10.00-18.00) mmol/L
[2022-06-04] MEDS: LORATADINE-PSEUDOEPH 5-120 MG 1 EACH TAB.ER.12H PO SCH ×2 (12:53→17:22)
[2022-06-04] MEDS: DEXAMETHASONE SOD PHOSPHATE 4 MG/ML 1 ML VIAL IVP SCH ×3 (13:30→23:18)
--- NOTE | 2022-06-04 15:31 | P.PN ---
Subjective Progress Note Date: 06/04/22 - Reason for Consult Consult date: 06/03/22 Medical management postop sleep gastrectomy, history of hypertension - History of Present Illness This is a pleasant 57-year-old female who was recently admitted under surgical services and underwent laparoscopic sleeve gastrectomy with Dr. Rose and is in postop recovery. Patient reports she follows with Dr. Colleen rose as her primary care provider with a past medical history of asthma, gastroesophageal reflux disease, hyperlipidemia, hypertension. Patient reports she quit smoking earlier this year and occasionally drinks alcohol socially and denies any other illicit drug use. Patient currently maintained on hydrochlorothiazide for blood pressure control and will hold and monitor closely for any postoperative hypotension. Recommend repeat labs in the a.m. and if continuing to be hypertensive will resume medications. Patient is currently nothing by mouth except for ice chips per surgical protocol and diet will be advanced per surgery recommendations. Recommend incentive spirometer use at least 10 times every hour while awake and we will continue to follow with general surgery during hospitalization. Other appropriate home medications have been resumed. 06/04/2022 Patient is seen and evaluated in follow-up and is postop laparoscopic sleeve gastrectomy. Patient did undergo upper GI series and awaiting final report. Patient will be started on clear liquids per surgery services once report is finalized. Patient's blood pressure currently normotensive and will continue to hold hydrochlorothiazide and follow-up on repeat labs. Patient with an incentive spirometer at the bedside and recommended continue using at least 10 times every hour while awake. Continue with pain management and DVT prophylaxis per primary service. Patient is reporting some dyspepsia and acid reflux and will increase the Protonix to twice daily and also add simethicone and Maalox as needed. Encouraged increased activity as tolerated and patient reports she is up and walking. Patient reports no passing of gas and denies bowel movement yet. Patient is urinating. Patient is currently afebrile and denies chest pain or shortness of breath. Review of systems: Constitutional: No reports of fatigue, fever, or chills Cardiovascular: No reports of chest pain or palpitations Respiratory: No reports of shortness of breath or cough GI: No reports of nausea, vomiting, or diarrhea, reports no passing gas and no bowel movement as of yet, reports acid reflux : No reports of dysuria or retention Neurovascular: No reports of weakness or numbness All medications have been reviewed Active Medications Al Hydroxide/Mg Hydroxide (Mag Hydrox/Al Hydrox/Simeth 30 Ml Cup) 30 ml PO Q4HR PRN PRN Reason: GI Upset Albuterol Sulfate (Albuterol Nebulized 2.5 Mg/3 Ml) 2.5 mg INHALATION RT-QID [facility] Last Admin: 06/04/22 11:36 Dose: Not Given Atorvastatin Calcium (Atorvastatin 20 Mg Tab) 20 mg PO HS [facility] Last Admin: 06/03/22 22:41 Dose: 20 mg Bisacodyl (Bisacodyl 5 Mg Tablet.Dr) 5 mg PO ONCE PRN PRN Reason: Constipation Dexamethasone Sodium Phosphate (Dexamethasone Sod Phosphate 4 Mg/Ml 1 Ml Vial) 4 mg IVP Q6HR [facility] Last Admin: 06/04/22 13:30 Dose: 4 mg Diphenhydramine HCl (Diphenhydramine 50 Mg/Ml 1 Ml Vial) 25 mg IVP Q6HR PRN PRN Reason: Itching Enoxaparin Sodium (Enoxaparin 40 Mg/0.4 Ml Syringe) 40 mg SQ Q12HR [facility] Last Admin: 06/04/22 08:48 Dose: 40 mg Hydromorphone HCl (Hydromorphone 1 Mg/Ml 1 Ml Syringe) 1 mg IVP Q3HR PRN PRN Reason: Severe Pain (7 to 10) Last Admin: 06/04/22 02:12 Dose: 1 mg Hyoscyamine (Hyoscyamine Oral Drops 1.875 Mg/15 Ml Bottle) 0.125 mg PO Q6HR PRN PRN Reason: Esophageal Spasm Last Admin: 06/04/22 11:47 Dose: 0.125 mg Potassium Chloride/Sodium Chloride (Ns-Kcl 20 Meq/L Iv Solution) 1,000 mls @ 100 mls/hr IV .Q10H [facility] Last Admin: 06/04/22 09:02 Dose: 100 mls/hr Acetaminophen 1,000 mg/ IV (Solution) 100 mls @ 400 mls/hr IVPB Q6HR [facility] Last Admin: 06/04/22 12:02 Dose: 400 mls/hr Ketorolac Tromethamine (Ketorolac 15 Mg/Ml 1 Ml Vial) 15 mg IVP Q6HR [facility] Stop: 06/07/22 08:15 Last Admin: 06/04/22 13:29 Dose: 15 mg Loratadine/Pseudoephedrine Sulfate (Loratadine-Pseudoeph 5-120 Mg 1 Each Tab.Er.12h) 1 each PO Q12HR [facility] Last Admin: 06/04/22 12:53 Dose: Not Given Naloxone HCl (Naloxone 0.4 Mg/Ml 1 Ml Vial) 0.2 mg IV Q2M PRN PRN Reason: Opioid Reversal Ondansetron HCl (Ondansetron 4 Mg/2 Ml Vial) 4 mg IVP Q6HR PRN PRN Reason: Nausea And Vomiting Last Admin: 06/04/22 11:53 Dose: 4 mg Oxybutynin Chloride (Oxybutynin 10 Mg Tab.Er.24) 10 mg PO HS [facility] Last Admin: 06/03/22 22:41 Dose: 10 mg Pantoprazole Sodium (Pantoprazole 40 Mg/10 Ml Vial) 40 mg IV BID [facility] Scopolamine (Scopolamine 1 Mg/72 Hr Patch) 1 patch TRANSDERM Q72H [facility] Last Admin: 06/04/22 10:03 Dose: 1 patch Sertraline HCl (Sertraline 100 Mg Tab) 200 mg PO QAM [facility] Last Admin: 06/04/22 10:51 Dose: 200 mg Simethicone (Simethicone 40 Mg/0.6 Ml Drops 2,000 Mg/30 Ml Bottle) 40 mg PO Q6HR PRN PRN Reason: Bloating Last Admin: 06/04/22 11:49 Dose: 40 mg PHYSICAL EXAMINATION: GENERAL: The patient is alert and oriented x4, Well developed, well nourished. Obese HEENT: Pupils are round and equally reacting to light. EOMI. no scleral icterus. No conjunctival pallor. Normocephalic, atraumatic. No pharyngeal erythema. No thyromegaly. CARDIOVASCULAR: S1 and S2 muffled PULMONARY: diminished breath sounds bilaterally otherwise clear to auscultation with no wheezing or rhonchi noted. ABDOMEN: soft. tender on exam. obese. non-distended, sluggish bowel sounds. No palpable organomegaly. MUSCULOSKELETAL: No joint swelling or deformity. EXTREMITIES: No cyanosis, clubbing, or pedal edema. NEUROLOGICAL: Gross neurological examination did not reveal any focal deficits. SKIN: No rashes. Assessment: Status post laparoscopic sleeve gastrectomy postop day 1 History of asthma, not in exacerbation Gastroesophageal reflux disease Hyperlipidemia Hypertension History of anxiety/depression GI prophylaxis DVT prophylaxis Full code Plan: Recommend continue with current medications and appropriate home medications have been resumed. Patient does take hydrochlorothiazide which recommend holding and will monitor closely. Currently normotensive Recommend repeat labs in the a.m. Continue with nothing by mouth with just ice chips per surgery recommendations and advance only as tolerated and per surgery. Upper GI showing postsurgical changes from gastric sleeve without evidence of leak and will be advanced to bariatric clear liquids per surgery today Recommend incentive spirometer at least 10 times every hour while awake Patient is reporting some acid reflux and will increase Protonix IV to twice daily and add Maalox and simethicone. Patient reports the belching with minimal gas in no reports of bowel movement yet Encouraged increased activity as tolerated and patient reports she has been up and walking We will continue to monitor with general surgery Dr. Rose during hospitalization and would like to thank you for this consultation The impression and plan of care has been dictated by Gail Katz, nurse practitioner as directed. Dr. Vanesa MD I have performed a history and examination and MDM of this patient, discussed the same with the dictator, and agree with the dictator's assessment and plan as written ,documented as a scribe. Based on total visit time, I have performed more than 50% of the visit. Any additional findings or plans will be noted. Objective - Vital Signs Vital signs: Vital Signs Temp 98.5 F 06/04/22 07:57 Pulse 61 06/04/22 07:57 Resp 16 06/04/22 07:57 BP 115/76 06/04/22 07:57 Pulse Ox 98 06/04/22 07:57 FiO2 Intake & Output 06/03/22 06/04/22 06/04/22 18:59 06:59 18:59 Intake Total 825 Output Total 110 500 Balance 715 -500 Weight 97.8 kg Intake: IV 825 Output: Urine 100 500 Estimated Blood Loss 10 Other: # Voids 1 1 - Labs CBC & Chem 7: 06/04/22 05:28 06/04/22 05:28 Labs: Abnormal Lab Results - Last 24 Hours (Table) 06/04/22 Range/Units 05:28 WBC 10.10 H (4.50-10.00) X 10*3/uL MCV 99.8 H (80.0-97.0) fL MCHC 31.4 L (32.0-37.0) g/dL Eosinophils # 0.02 L (0.04-0.35) X 10*3/uL
[2022-06-04] MEDS: OXYBUTYNIN 10 MG TAB.ER.24 PO SCH (20:01)
[2022-06-04] MEDS: ATORVASTATIN 20 MG TAB PO SCH (20:01)
[2022-06-04] MEDS: PANTOPRAZOLE 40 MG/10 ML VIAL IV SCH (20:02)
[2022-06-05] MEDS: 0.9% NACL WITH KCL 20 MEQ/L 1,000 ML IV SCH ×2 (02:55→13:13)
[2022-06-05] MEDS: ACETAMINOPHEN IV (For NPO) 1,000 MG in EMPTY BAG 1 BAG IVPB SCH ×2 (05:19→13:11)
[2022-06-05] MEDS: KETOROLAC 15 MG/ML 1 ML VIAL IVP SCH ×2 (05:19→13:11)
[2022-06-05] MEDS: DEXAMETHASONE SOD PHOSPHATE 4 MG/ML 1 ML VIAL IVP SCH ×4 (05:19→23:22)
[2022-06-05] MEDS ORDERED: bisacodyL 5 MG TABLET.DR PO PRN (08:00)
[2022-06-05] MEDS: ENOXAPARIN 40 MG/0.4 ML SYRINGE SQ SCH (08:36)
[2022-06-05] MEDS: SERTRALINE 100 MG TAB PO SCH (08:36)
[2022-06-05] MEDS: PANTOPRAZOLE 40 MG/10 ML VIAL IV SCH ×2 (08:36→20:49)
[2022-06-05] MEDS: LORATADINE-PSEUDOEPH 5-120 MG 1 EACH TAB.ER.12H PO SCH ×2 (08:37→20:49)
[2022-06-05] MEDS: ALBUTEROL NEBULIZED 2.5 MG/3 ML INHALATION SCH ×4 (08:51→19:21)
[2022-06-05] MEDS ORDERED: IOPAMIDOL CONTRAST (ORAL USE) VIAL PO PRN (12:55)
--- NOTE | 2022-06-05 12:58 | P.PN ---
Subjective Progress Note Date: 06/05/22 Principal diagnosis: Morbid obesity Patient says she was doing fairly well through the afternoon and evening. This morning around 9:00 began experiencing increased abdominal pain. She points across the abdomen but says it's worse on the right side. She says it feels like gas pain. She has had some belching. No flatus or bowel movement. She has been tolerating her clear liquids. No tachycardia. No labs from today. Objective - Vital Signs Vital signs: Vital Signs Temp 98.2 F 06/05/22 08:00 Pulse 62 06/05/22 08:00 Resp 16 06/05/22 02:00 BP 125/81 06/05/22 08:00 Pulse Ox 98 06/05/22 08:00 FiO2 Intake & Output 06/04/22 06/05/22 06/05/22 18:59 06:59 18:59 Intake Total 480 Output Total 600 Balance -600 480 Weight 97.8 kg Intake: Intake, IV Titration 480 Amount 0.9% NaCl with KCl 20 Meq 480 /l 1,000 ml @ 60 mls/hr IV .[id number] [facility] Rx#: [id number] Output: Urine 600 Other: Voiding Method Toilet Toilet # Voids 3 - Exam Abdomen: Soft, mild distention, incisions clean and dry, moderate mid and right mid abdominal tenderness - Labs CBC & Chem 7: 06/04/22 05:28 06/04/22 05:28 Assessment and Plan (1) Severe obesity (BMI 35.0-39.9) with comorbidity Narrative/Plan: 57-year-old female with pain post sleeve gastrectomy. We'll check CT abdomen and pelvis at this time. We'll also check CBC. Current Visit: No Status: Acute Code(s): E66.01 - MORBID (SEVERE) OBESITY DUE TO EXCESS CALORIES SNOMED Code(s): 45647735010020
[2022-06-05] MEDS: ONDANSETRON 4 MG/2 ML VIAL IVP PRN (13:18)
[2022-06-05 13:44] LABS: Basophils % (A) 0 %; Eosinophils % (A) 0 %; HGB 11.8 gm/dL (11.4-16.0); Lymphocytes # (A) 1.7 k/uL (1.0-4.8); Lymphocytes % (A) 14 %; MCH 32.4 pg (25.0-35.0); MCV 101.1 fL (80.0-100.0); Mean Platelet Volume 8.8; Monocytes # (A) 0.4 k/uL (0-1.0); Monocytes % (A) 3 %; Neutrophils # (A) 9.5 k/uL (1.3-7.7); Neutrophils % (A) 81 %; Platelet Count 266 k/uL (150-450); RBC 3.66 m/uL (3.80-5.40); WBC 11.7 k/uL (3.8-10.6)
--- NOTE | 2022-06-05 15:40 | P.PN ---
Subjective Progress Note Date: 06/05/22 - Reason for Consult Consult date: 06/03/22 Medical management postop sleep gastrectomy, history of hypertension - History of Present Illness This is a pleasant 57-year-old female who was recently admitted under surgical services and underwent laparoscopic sleeve gastrectomy with Dr. Rose and is in postop recovery. Patient reports she follows with Dr. Colleen rose as her primary care provider with a past medical history of asthma, gastroesophageal reflux disease, hyperlipidemia, hypertension. Patient reports she quit smoking earlier this year and occasionally drinks alcohol socially and denies any other illicit drug use. Patient currently maintained on hydrochlorothiazide for blood pressure control and will hold and monitor closely for any postoperative hypotension. Recommend repeat labs in the a.m. and if continuing to be hypertensive will resume medications. Patient is currently nothing by mouth except for ice chips per surgical protocol and diet will be advanced per surgery recommendations. Recommend incentive spirometer use at least 10 times every hour while awake and we will continue to follow with general surgery during hospitalization. Other appropriate home medications have been resumed. 06/04/2022 Patient is seen and evaluated in follow-up and is postop laparoscopic sleeve gastrectomy. Patient did undergo upper GI series and awaiting final report. Patient will be started on clear liquids per surgery services once report is finalized. Patient's blood pressure currently normotensive and will continue to hold hydrochlorothiazide and follow-up on repeat labs. Patient with an incentive spirometer at the bedside and recommended continue using at least 10 times every hour while awake. Continue with pain management and DVT prophylaxis per primary service. Patient is reporting some dyspepsia and acid reflux and will increase the Protonix to twice daily and also add simethicone and Maalox as needed. Encouraged increased activity as tolerated and patient reports she is up and walking. Patient reports no passing of gas and denies bowel movement yet. Patient is urinating. Patient is currently afebrile and denies chest pain or shortness of breath. 06/05/2022 Patient is seen and evaluated in follow-up today continuing to have abdominal distention and bloating reporting she continues to belch with feelings of gas being trapped and not passing gas nor bowel movements. Patient is voiding with no difficulties. Patient is afebrile and denies chest pain or shortness of breath. Patient has been started on bariatric clears and asking for more food although understands the protocol post LEEP gastrectomy. Blood pressure is normotensive and recommend continue holding hydrochlorothiazide at this time. Encouraged increase activity as tolerated and continued incentive spirometer u se. CT abdomen has been ordered by general surgery which is pending at this time. Repeat CBC shows a mildly elevated WBC of 11 recommend repeat labs Review of systems: Constitutional: No reports of fatigue, fever, or chills Cardiovascular: No reports of chest pain or palpitations Respiratory: No reports of shortness of breath or cough GI: No reports of nausea, vomiting, or diarrhea, reports increased belching with no passing gas and no bowel movement as of yet, reports increased abdominal di stention : No reports of dysuria or retention Neurovascular: No reports of weakness or numbness All medications have been reviewed Active Medications Al Hydroxide/Mg Hydroxide (Mag Hydrox/Al Hydrox/Simeth 30 Ml Cup) 30 ml PO Q4HR PRN PRN Reason: GI Upset Albuterol Sulfate (Albuterol Nebulized 2.5 Mg/3 Ml) 2.5 mg INHALATION RT-QID [facility] Last Admin: 06/05/22 11:57 Dose: Not Given Atorvastatin Calcium (Atorvastatin 20 Mg Tab) 20 mg PO HS [facility] Last Admin: 06/04/22 20:01 Dose: 20 mg Bisacodyl (Bisacodyl 5 Mg Tablet.Dr) 5 mg PO ONCE PRN PRN Reason: Constipation Dexamethasone Sodium Phosphate (Dexamethasone Sod Phosphate 4 Mg/Ml 1 Ml Vial) 4 mg IVP Q6HR [facility] Last Admin: 06/05/22 13:11 Dose: 4 mg Diphenhydramine HCl (Diphenhydramine 50 Mg/Ml 1 Ml Vial) 25 mg IVP Q6HR PRN PRN Reason: Itching Enoxaparin Sodium (Enoxaparin 40 Mg/0.4 Ml Syringe) 40 mg SQ Q12HR [facility] Last Admin: 06/05/22 08:36 Dose: 40 mg Hydromorphone HCl (Hydromorphone 1 Mg/Ml 1 Ml Syringe) 1 mg IVP Q3HR PRN PRN Reason: Severe Pain (7 to 10) Last Admin: 06/04/22 02:12 Dose: 1 mg Hyoscyamine (Hyoscyamine Oral Drops 1.875 Mg/15 Ml Bottle) 0.125 mg PO Q6HR PRN PRN Reason: Esophageal Spasm Last Admin: 06/04/22 18:12 Dose: 0.125 mg Acetaminophen 1,000 mg/ IV (Solution) 100 mls @ 400 mls/hr IVPB Q6HR [facility] Last Admin: 06/05/22 13:11 Dose: 400 mls/hr Potassium Chloride/Sodium Chloride (Ns-Kcl 20 Meq/L Iv Solution) 1,000 mls @ 60 mls/hr IV .[id number] [facility] Last Admin: 06/05/22 13:13 Dose: 60 mls/hr Iopamidol (Iopamidol Contrast (Oral Use) Vial) 30 ml PO Q60M PRN PRN Reason: CT Scan Stop: 06/05/22 23:00 Ketorolac Tromethamine (Ketorolac 15 Mg/Ml 1 Ml Vial) 15 mg IVP Q6HR [facility] Stop: 06/07/22 08:15 Last Admin: 06/05/22 13:11 Dose: 15 mg Loratadine/Pseudoephedrine Sulfate (Loratadine-Pseudoeph 5-120 Mg 1 Each Tab.Er.12h) 1 each PO Q12HR [facility] Last Admin: 06/05/22 08:37 Dose: 1 each Naloxone HCl (Naloxone 0.4 Mg/Ml 1 Ml Vial) 0.2 mg IV Q2M PRN PRN Reason: Opioid Reversal Ondansetron HCl (Ondansetron 4 Mg/2 Ml Vial) 4 mg IVP Q6HR PRN PRN Reason: Nausea And Vomiting Last Admin: 06/05/22 13:18 Dose: 4 mg Oxybutynin Chloride (Oxybutynin 10 Mg Tab.Er.24) 10 mg PO HS [facility] Last Admin: 06/04/22 20:01 Dose: 10 mg Pantoprazole Sodium (Pantoprazole 40 Mg/10 Ml Vial) 40 mg IV BID [facility] Last Admin: 06/05/22 08:36 Dose: 40 mg Scopolamine (Scopolamine 1 Mg/72 Hr Patch) 1 patch TRANSDERM Q72H [facility] Last Admin: 06/04/22 10:03 Dose: 1 patch Sertraline HCl (Sertraline 100 Mg Tab) 200 mg PO QAM [facility] Last Admin: 06/05/22 08:36 Dose: 200 mg Simethicone (Simethicone 40 Mg/0.6 Ml Drops 2,000 Mg/30 Ml Bottle) 40 mg PO Q6HR PRN PRN Reason: Bloating Last Admin: 06/04/22 18:13 Dose: 40 mg PHYSICAL EXAMINATION: GENERAL: The patient is alert and oriented x4, Well developed, well nourished. Obese HEENT: Pupils are round and equally reacting to light. EOMI. no scleral icterus. No conjunctival pallor. Normocephalic, atraumatic. No pharyngeal erythema. No thyromegaly. CARDIOVASCULAR: S1 and S2 muffled PULMONARY: diminished breath sounds bilaterally otherwise clear to auscultation with no wheezing or rhonchi noted. ABDOMEN: soft. tender on exam. obese. Mildly distended, sluggish bowel sounds. No palpable organomegaly. MUSCULOSKELETAL: No joint swelling or deformity. EXTREMITIES: No cyanosis, clubbing, or pedal edema. NEUROLOGICAL: Gross neurological examination did not reveal any focal deficits. SKIN: No rashes. Assessment: Status post laparoscopic sleeve gastrectomy postop day 2 History of asthma, not in exacerbation Gastroesophageal reflux disease Hyperlipidemia Hypertension History of anxiety/depression GI prophylaxis DVT prophylaxis Full code Plan: Recommend continue with current medications and appropriate home medications have been resumed. Patient does take hydrochlorothiazide which recommend holding and will monitor closely. Currently normotensive Recommend repeat labs in the a.m. Continue with area after clear liquid diet per surgery recommendations. Patient is continued on IV Decadron Recommend incentive spirometer at least 10 times every hour while awake Patient is reporting some continued belching with minimal gas in no reports of bowel movement yet, report some abdominal distention and CT abdomen is ordered and pending at this time Encouraged increased activity as tolerated and patient reports she has been up and walking We will continue to monitor with general surgery Dr. Rose during hospitalization and would like to thank you for this consultation The impression and plan of care has been dictated by Gail Katz, nurse practitioner as directed. Dr. Kannan MD I have performed a history and examination and MDM of this patient, discussed th e same with the dictator, and agree with the dictator's assessment and plan as written ,documented as a scribe. Based on total visit time, I have performed more than 50% of the visit. Any additional findings or plans will be noted. Objective - Vital Signs Vital signs: Vital Signs Temp 98 F 06/05/22 02:00 Pulse 86 06/05/22 02:00 Resp 16 06/05/22 02:00 BP 105/65 06/05/22 02:00 Pulse Ox 94 L 06/05/22 02:00 FiO2 Intake & Output 06/04/22 06/05/22 06/05/22 18:59 06:59 18:59 Output Total 600 Balance -600 Weight 97.8 kg Output: Urine 600 Other: Voiding Method Toilet Toilet # Voids 3 - Labs CBC & Chem 7: 06/05/22 13:16 06/04/22 05:28 Labs: Abnormal Lab Results - Last 24 Hours (Table) 06/04/22 Range/Units 05:28 Carbon Dioxide 32.1 H (20.0-27.5) mmol/L Anion Gap 6.40 L (10.00-18.00) mmol/L
--- NOTE | 2022-06-05 15:49 | CT ---
EXAMINATION TYPE: CT abdomen pelvis w con DATE OF EXAM: 06/05/2022 COMPARISON: 06/04/2022 upper GI INDICATION: S/p bariatric sleeve, abdominal pain DLP: 1739.8 mGycm, Automated exposure control for dose reduction was used. CONTRAST: 100 mL of Isovue 300. Study performed with Oral Contrast TECHNIQUE: Axial images were obtained from above the diaphragm to the pubic rami in the axial plane a t 5 mm thick sections. Reconstructed images are reviewed on the computer in the coronal plane. FINDINGS: Limited CT sections are obtained the lung bases. Minimal infiltrate may be through the right lower l arthur field left base. Atelectasis is favored at these locations.. CT ABDOMEN: There is ar 6.1 x 7.7 x 4.9 cm lobular 62 Hounsfield unit density near the distal stomach suture line . Oral contrast is within the stomach and is evident within the duodenum and small bowel loops. Contr ast extravasation at this location is not identified. In discussion with the surgeon, hematoma would be favored. No free air is evident. There is evidence of additional fluid within the pelvis and withi n the mesentery and to a mild degree the right paracolic gutter. Small amount of fluid is adjacent to the liver at the diaphragm. Hemorrhage is considered. Liver: There is likely mild fatty infiltration of the liver. Some vague hypodense area is within the medial left lobe liver Spleen: Normal Pancreas: Normal Adrenal glands: The adrenal glands are normal. Gallbladder: Normal Kidneys: No masses are evident. No hydronephrosis is present. No cysts are present. Delayed images were obtained through the kidneys, which remain unremarkable. Aorta: Vascular calcification is within the aorta. Inferior vena cava: Normal. CT PELVIS: Oral contrast is within the ascending colon and transverse colon. Additional oral contrast is within proximal small bowel loops. Note is made of gastroesophageal reflux with contrast within the distal e sophagus during this exam. Some vague contrast appears to be seen adjacent to the suture line appears to lie within the stomach. No extravasation of contrast is identified. Diverticular changes without acute diverticulitis are within the sigmoid colon. Appendix: Normal as visualized. Urinary bladder: Normal. Genitourinary structures: Uterus and adnexa appear within normal limits. Osseous structures: There is some increased sclerosis along the left pubic symphysis, correlate for p ubic symphysitis. Mild degenerative changes are at the sacroiliac joints. Degenerative facet changes are within the lumbar spine. No suspicious lytic or sclerotic lesions are evident. Mild grade 1 spond ylolisthesis of L4 on L5 appears to be present. IMPRESSIONS: 1. Intermediate density adjacent to the gastric sleeve suture line measures 62 Hounsfield units with additional lower density fluid collections within the mesentery, within the pelvis, and adjacent to the liver. Consider hemorrhage/hematoma. Case was discussed with the surgeon by telephone at the time of preliminary interpretation.
[2022-06-05] MEDS ORDERED: ACETAMINOPHEN IV (For NPO) 1,000 MG in EMPTY BAG 1 BAG IVPB PRN (16:34)
[2022-06-05] MEDS: HYDROcodone/APAP 15 ML SOLUTION PO PRN (16:36)
[2022-06-05] MEDS: OXYBUTYNIN 10 MG TAB.ER.24 PO SCH (20:49)
[2022-06-05] MEDS: ATORVASTATIN 20 MG TAB PO SCH (20:49)
[2022-06-05] MEDS: HYDROmorphone 1 MG/ML 1 ML SYRINGE IVP PRN (23:25)
[2022-06-06] MEDS: DEXAMETHASONE SOD PHOSPHATE 4 MG/ML 1 ML VIAL IVP SCH ×4 (06:21→23:50)
[2022-06-06] MEDS: 0.9% NACL WITH KCL 20 MEQ/L 1,000 ML IV SCH ×2 (06:22→22:57)
[2022-06-06 07:58] LABS: African American GFR (CKD) >90 (>60 ml/min/1.73 sqM); Anion Gap 7 mmol/L; Blood Urea Nitrogen 18 mg/dL (7-17); Calcium 8.6 mg/dL (8.4-10.2); Carbon Dioxide 26 mmol/L (22-30); Chloride 107 mmol/L (98-107); Glucose 100 mg/dL (74-99); Non-African American GFR(CKD) >90 (>60 ml/min/1.73 sqM); Potassium 5.3 mmol/L (3.5-5.1); Sodium 140 mmol/L (137-145)
[2022-06-06] MEDS: SERTRALINE 100 MG TAB PO SCH (08:35)
[2022-06-06] MEDS: PANTOPRAZOLE 40 MG/10 ML VIAL IV SCH ×2 (08:36→20:30)
[2022-06-06] MEDS: LORATADINE-PSEUDOEPH 5-120 MG 1 EACH TAB.ER.12H PO SCH ×2 (08:36→20:55)
[2022-06-06] MEDS: HYDROcodone/APAP 15 ML SOLUTION PO PRN ×2 (08:46→14:13)
[2022-06-06] MEDS: ALBUTEROL NEBULIZED 2.5 MG/3 ML INHALATION SCH ×4 (09:04→21:14)
[2022-06-06 11:21] LABS: Basophils # (A) 0.01 X 10*3/uL (0.00-0.10); Basophils % (A) 0.1 %; Eosinophils # (A) 0 X 10*3/uL (0.04-0.35); Eosinophils % (A) 0 %; HGB 8.9 g/dL (12.0-15.0); Immature Grans, Automated 0.3 %; Lymphocytes # (A) 1.79 X 10*3/uL (0.90-5.00); Lymphocytes % (A) 15.5 %; MCH 32.1 pg (27.0-32.0); MCHC 31.8 g/dL (32.0-37.0); MCV 101.1 fL (80.0-97.0); Mean Platelet Volume 11.1 fL (9.5-12.2); Monocytes # (A) 0.82 X 10*3/uL (0.20-1.00); Monocytes % (A) 7.1 %; NRBC Per 100 WBC 0 /100 WBCS (0.0-0.0); Neutrophils # (A) 8.91 X 10*3/uL (1.80-7.70); Platelet Count 241 X 10*3/uL (140-440); RBC 2.77 X 10*6/uL (4.10-5.20); RDW 13.2 % (11.5-14.5); WBC 11.57 X 10*3/uL (4.50-10.00)
--- NOTE | 2022-06-06 15:04 | P.PN ---
Subjective Progress Note Date: 06/06/22 Principal diagnosis: Morbid obesity Patient doing well today. She has no pain unless she is trying to get up out of bed or moving in the bed using her abdominal musculature. The patient's pain yesterday that started at 9 AM was evaluated with CAT scan. The results were discussed with the nursing staff and the patient herself by phone yesterday afternoon once I reviewed the films. The films were also reviewed with radiology. The patient had evidence of a hematoma at the distal aspect of the staple line. There is no evidence of extravasation. The patient subsequent to that has had some relative hypotension and evidence of significant abdominal wall ecchymosis that was not there previously. The patient has a small amount of fluid along the liver margin and also in the pelvis. Her hemoglobin which was 13 on the morning after surgery, 11.8 yesterday morning before she developed abdominal discomfort, and then today dropped down to 8.9 which is not unexpected. She is tolerating liquids although states she does not like the taste of the sugar-free options. She is afebrile. No tachycardia. Objective - Vital Signs Vital signs: Vital Signs Temp 97.8 F 06/06/22 08:37 Pulse 65 06/06/22 08:37 Resp 16 06/06/22 08:37 BP 116/74 06/06/22 08:37 Pulse Ox 97 06/06/22 08:37 FiO2 Intake & Output 06/05/22 06/06/22 06/06/22 18:59 06:59 18:59 Intake Total 480 720 Balance 480 720 Intake: Intake, IV Titration 480 720 Amount 0.9% NaCl with KCl 20 Meq 480 720 /l 1,000 ml @ 60 mls/hr IV .[id number] [facility] Rx#: [id number] Other: # Voids 2 - Exam Abdomen: Soft, mild right mid abdominal tenderness, ecchymosis around umbilicus circumferentially - Labs CBC & Chem 7: 06/06/22 06:34 06/06/22 06:34 Labs: Abnormal Lab Results - Last 24 Hours (Table) 06/05/22 06/06/22 06/06/22 Range/Units 13:16 06:34 06:34 WBC 11.57 H (4.50-10.00) X 10*3/uL RBC 2.77 L (4.10-5.20) X 10*6/uL Hgb 8.9 L (12.0-15.0) g/dL Hct 28.0 L (37.2-46.3) % MCV 101.1 H (80.0-97.0) fL MCH 32.1 H (27.0-32.0) pg MCHC 31.8 L (32.0-37.0) g/dL Neutrophils # 9.5 H 8.91 H (1.3-7.7) k/uL Eosinophils # 0 L (0.04-0.35) X 10*3/uL Potassium 5.3 H (3.5-5.1) mmol/L BUN 18 H (7-17) mg/dL Glucose 100 H (74-99) mg/dL Assessment and Plan (1) Severe obesity (BMI 35.0-39.9) with comorbidity Narrative/Plan: 57-year-old female with acute blood loss anemia related to bleeding along the distal aspect of her staple line by CAT scan. Patient would like to go home. I have requested that she stay one more evening so we can follow her overnight to be sure there is no evidence of any recurrent active bleeding. Suspect the patient's hemoglobin tomorrow will be lower than it is today likely in the 7 range. Continue bariatric clears. I held the patient's Lovenox yesterday once the CAT scan was noted. Will resume heparin subcu at this time for DVT prophylaxis. Patient will be walking more starting this evening as well. Current Visit: No Status: Acute Code(s): E66.01 - MORBID (SEVERE) OBESITY DUE TO EXCESS CALORIES SNOMED Code(s): [id number]
[2022-06-06] MEDS: HEPARIN SODIUM,PORCINE/PF 5,000 UNIT/0.5 ML SYRINGE SQ SCH (20:30)
[2022-06-06] MEDS: ATORVASTATIN 20 MG TAB PO SCH (20:30)
[2022-06-06] MEDS: OXYBUTYNIN 10 MG TAB.ER.24 PO SCH (20:30)
[2022-06-06] MEDS: HYDROmorphone 1 MG/ML 1 ML SYRINGE IVP PRN (20:55)
[2022-06-07] MEDS: 0.9% NACL WITH KCL 20 MEQ/L 1,000 ML IV SCH (00:50)
--- NOTE | 2022-06-07 05:26 | P.PN ---
Subjective Progress Note Date: 06/06/22 - Reason for Consult Consult date: 06/03/22 Medical management postop sleep gastrectomy, history of hypertension - History of Present Illness This is a pleasant 57-year-old female who was recently admitted under surgical services and underwent laparoscopic sleeve gastrectomy with Dr. Rose and is in postop recovery. Patient reports she follows with Dr. Colleen rose as her primary care provider with a past medical history of asthma, gastroesophageal reflux disease, hyperlipidemia, hypertension. Patient reports she quit smoking earlier this year and occasionally drinks alcohol socially and denies any other illicit drug use. Patient currently maintained on hydrochlorothiazide for blood pressure control and will hold and monitor closely for any postoperative hypotension. Recommend repeat labs in the a.m. and if continuing to be hypertensive will resume medications. Patient is currently nothing by mouth except for ice chips per surgical protocol and diet will be advanced per surgery recommendations. Recommend incentive spirometer use at least 10 times every hour while awake and we will continue to follow with general surgery during hospitalization. Other appropriate home medications have been resumed. 06/04/2022 Patient is seen and evaluated in follow-up and is postop laparoscopic sleeve gastrectomy. Patient did undergo upper GI series and awaiting final report. Patient will be started on clear liquids per surgery services once report is finalized. Patient's blood pressure currently normotensive and will continue to hold hydrochlorothiazide and follow-up on repeat labs. Patient with an incentive spirometer at the bedside and recommended continue using at least 10 times every hour while awake. Continue with pain management and DVT prophylaxis per primary service. Patient is reporting some dyspepsia and acid reflux and will increase the Protonix to twice daily and also add simethicone and Maalox as needed. Encouraged increased activity as tolerated and patient reports she is up and walking. Patient reports no passing of gas and denies bowel movement yet. Patient is urinating. Patient is currently afebrile and denies chest pain or shortness of breath. 06/05/2022 Patient is seen and evaluated in follow-up today continuing to have abdominal distention and bloating reporting she continues to belch with feelings of gas being trapped and not passing gas nor bowel movements. Patient is voiding with no difficulties. Patient is afebrile and denies chest pain or shortness of breath. Patient has been started on bariatric clears and asking for more food although understands the protocol post LEEP gastrectomy. Blood pressure is normotensive and recommend continue holding hydrochlorothiazide at this time. Encouraged increase activity as tolerated and continued incentive spirometer u se. CT abdomen has been ordered by general surgery which is pending at this time. Repeat CBC shows a mildly elevated WBC of 11 recommend repeat labs 06/06/2022 Patient is seen this am with a drop in hemoglobin and also blood pressures running in the low 90's systolic. CT abdomen noted a large hematoma at the umbilical suture site and patient had been on lovenox. Surgery has discontinued this and being placed on sub q heparin for dvt prophylaxis and repeat cbc ordered. Acute blood loss anemia. Recommend holding her bp med as well. Patient denies dizziness or lightheadedness and has been getting up and walking more. Patient is continued on bariatric clear liquid and tolerating. Patient reports she does not care for the taste, but denies nausea or vomiting. Patient is passing some gas with no BM as of yet. Patient is afebrile and denies chest pain or shortness of breath. Review of systems: Constitutional: No reports of fatigue, fever, or chills Cardiovascular: No reports of chest pain or palpitations Respiratory: No reports of shortness of breath or cough GI: No reports of nausea, vomiting, or diarrhea, reports passing gas and no bowel movement as of yet, reports bruising on the abdomen : No reports of dysuria or retention Neurovascular: No reports of weakness or numbness All medications have been reviewed Active Medications Hydrocodone Bitart/Acetaminophen (Hydrocodone/Apap 15 Ml Solution) 15 ml PO Q6HR PRN PRN Reason: Pain Last Admin: 06/06/22 14:13 Dose: 15 ml Al Hydroxide/Mg Hydroxide (Mag Hydrox/Al Hydrox/Simeth 30 Ml Cup) 30 ml PO Q4HR PRN PRN Reason: GI Upset Albuterol Sulfate (Albuterol Nebulized 2.5 Mg/3 Ml) 2.5 mg INHALATION RT-QID [facility] Last Admin: 06/06/22 21:14 Dose: Not Given Atorvastatin Calcium (Atorvastatin 20 Mg Tab) 20 mg PO HS [facility] Last Admin: 06/06/22 20:30 Dose: 20 mg Bisacodyl (Bisacodyl 5 Mg Tablet.Dr) 5 mg PO ONCE PRN PRN Reason: Constipation Dexamethasone Sodium Phosphate (Dexamethasone Sod Phosphate 4 Mg/Ml 1 Ml Vial) 4 mg IVP Q6HR [facility] Last Admin: 06/06/22 23:50 Dose: 4 mg Diphenhydramine HCl (Diphenhydramine 50 Mg/Ml 1 Ml Vial) 25 mg IVP Q6HR PRN PRN Reason: Itching Heparin Sodium (Porcine) (Heparin Sodium,Porcine/Pf 5,000 Unit/0.5 Ml Syringe) 5,000 unit SQ Q12HR [facility] Last Admin: 06/06/22 20:30 Dose: 5,000 unit Hydromorphone HCl (Hydromorphone 1 Mg/Ml 1 Ml Syringe) 1 mg IVP Q3HR PRN PRN Reason: Severe Pain (7 to 10) Last Admin: 06/06/22 20:55 Dose: 1 mg Hyoscyamine (Hyoscyamine Oral Drops 1.875 Mg/15 Ml Bottle) 0.125 mg PO Q6HR PRN PRN Reason: Esophageal Spasm Last Admin: 06/04/22 18:12 Dose: 0.125 mg Potassium Chloride/Sodium Chloride (Ns-Kcl 20 Meq/L Iv Solution) 1,000 mls @ 60 mls/hr IV .[id number] [facility] Last Admin: 06/07/22 00:50 Dose: 60 mls/hr Loratadine/Pseudoephedrine Sulfate (Loratadine-Pseudoeph 5-120 Mg 1 Each Tab.Er.12h) 1 each PO Q12HR [facility] Last Admin: 06/06/22 20:55 Dose: 1 each Naloxone HCl (Naloxone 0.4 Mg/Ml 1 Ml Vial) 0.2 mg IV Q2M PRN PRN Reason: Opioid Reversal Ondansetron HCl (Ondansetron 4 Mg/2 Ml Vial) 4 mg IVP Q6HR PRN PRN Reason: Nausea And Vomiting Last Admin: 06/05/22 13:18 Dose: 4 mg Oxybutynin Chloride (Oxybutynin 10 Mg Tab.Er.24) 10 mg PO HS [facility] Last Admin: 06/06/22 20:30 Dose: 10 mg Pantoprazole Sodium (Pantoprazole 40 Mg/10 Ml Vial) 40 mg IV BID [facility] Last Admin: 06/06/22 20:30 Dose: 40 mg Scopolamine (Scopolamine 1 Mg/72 Hr Patch) 1 patch TRANSDERM Q72H [facility] Last Admin: 06/04/22 10:03 Dose: 1 patch Sertraline HCl (Sertraline 100 Mg Tab) 200 mg PO QAM [facility] Last Admin: 06/06/22 08:35 Dose: 200 mg Simethicone (Simethicone 40 Mg/0.6 Ml Drops 2,000 Mg/30 Ml Bottle) 40 mg PO Q6H R PRN PRN Reason: Bloating Last Admin: 06/04/22 18:13 Dose: 40 mg PHYSICAL EXAMINATION: GENERAL: The patient is alert and oriented x4, Well developed, well nourished. Obese HEENT: Pupils are round and equally reacting to light. EOMI. no scleral icterus. No conjunctival pallor. Normocephalic, atraumatic. No pharyngeal erythema. No thyromegaly. CARDIOVASCULAR: S1 and S2 muffled PULMONARY: diminished breath sounds bilaterally otherwise clear to auscultation with no wheezing or rhonchi noted. ABDOMEN: soft. less tender on exam. obese. non- distended, bowel sounds. No palpable organomegaly. large ecchymosis noted around the umbilical area MUSCULOSKELETAL: No joint swelling or deformity. EXTREMITIES: No cyanosis, clubbing, or pedal edema. NEUROLOGICAL: Gross neurological examination did not reveal any focal deficits. SKIN: No rashes. Assessment: Status post laparoscopic sleeve gastrectomy postop day 3 acute blood loss anemia secondary to a large hematoma noted at the umbilicus surgical site, expected from recent surgery, possibly contributed by lovenox History of asthma, not in exacerbation Gastroesophageal reflux disease Hyperlipidemia Hypertension, currently hypotensive History of anxiety/depression GI prophylaxis DVT prophylaxis Full code Plan: Recommend continue with current medications and appropriate home medications have been resumed. Patient does take hydrochlorothiazide which recommend holding and will monitor closely. Currently blood pressures are on the soft side of 96 systolic. Acute blood loss anemia with a drop in hemoglobin down to the 8's and lovenox discontinued Recommend repeat labs in the a.m. Continue with bariatric clear liquid diet per surgery recommendations. Patient is continued on IV Decadron Recommend incentive spirometer at least 10 times every hour while awake Patient is reporting some continued belching with minimal gas in no reports of bowel movement yet, report some abdominal distention and CT abdomen showed a large hematoma at the umbilical surgical site Encouraged increased activity as tolerated and patient reports she has been up and walking We will continue to monitor with general surgery Dr. Rose during hospitalization and would like to thank you for this consultation Possible discharge per surgery in 24 hours. The impression and plan of care has been dictated by Gail Katz, nurse practitioner as directed. Dr. Kannan MD I have performed a history and examination and MDM of this patient, discussed the same with the dictator, and agree with the dictator's assessment and plan as written ,documented as a scribe. Based on total visit time, I have performed more than 50% of the visit. Any additional findings or plans will be noted. Objective - Vital Signs Vital signs: Vital Signs Temp 97.8 F 06/06/22 01:12 Pulse 77 06/06/22 01:12 Resp 18 06/06/22 01:12 BP 96/63 06/06/22 01:12 Pulse Ox 95 06/06/22 01:12 FiO2 Intake & Output 06/05/22 06/06/22 06/06/22 18:59 06:59 18:59 Intake Total 480 720 Balance 480 720 Intake: Intake, IV Titration 480 720 Amount 0.9% NaCl with KCl 20 Meq 480 720 /l 1,000 ml @ 60 mls/hr IV .[id number] [facility] Rx#: [id number] Other: # Voids 2 - Labs CBC & Chem 7: 06/06/22 06:34 06/06/22 06:34 Labs: Abnormal Lab Results - Last 24 Hours (Table) 06/05/22 06/06/22 Range/Units 13:16 06:34 WBC 11.7 H (3.8-10.6) k/uL RBC 3.66 L (3.80-5.40) m/uL MCV 101.1 H (80.0-100.0) fL Neutrophils # 9.5 H (1.3-7.7) k/uL Potassium 5.3 H (3.5-5.1) mmol/L BUN 18 H (7-17) mg/dL Glucose 100 H (74-99) mg/dL
[2022-06-07] MEDS: DEXAMETHASONE SOD PHOSPHATE 4 MG/ML 1 ML VIAL IVP SCH (05:52)
[2022-06-07 07:21] LABS: Basophils % (A) 0 %; Eosinophils % (A) 0 %; HCT 28.4 % (34.0-46.0); Lymphocytes # (A) 1.6 k/uL (1.0-4.8); Lymphocytes % (A) 17 %; MCH 32.5 pg (25.0-35.0); MCHC 32.3 g/dL (31.0-37.0); MCV 100.5 fL (80.0-100.0); Mean Platelet Volume 8.7; Monocytes # (A) 0.4 k/uL (0-1.0); Monocytes % (A) 4 %; Neutrophils # (A) 7.3 k/uL (1.3-7.7); Neutrophils % (A) 77 %; Platelet Count 264 k/uL (150-450); RBC 2.82 m/uL (3.80-5.40); WBC 9.5 k/uL (3.8-10.6)
[2022-06-07 07:26] LABS: HGB 9.2 gm/dL (11.4-16.0)
[2022-06-07] MEDS: ALBUTEROL NEBULIZED 2.5 MG/3 ML INHALATION SCH ×2 (08:09→11:32)
[2022-06-07] MEDS: SERTRALINE 100 MG TAB PO SCH (08:14)
[2022-06-07] MEDS: HEPARIN SODIUM,PORCINE/PF 5,000 UNIT/0.5 ML SYRINGE SQ SCH (08:15)
[2022-06-07] MEDS: PANTOPRAZOLE 40 MG/10 ML VIAL IV SCH (08:15)
[2022-06-07] MEDS: LORATADINE-PSEUDOEPH 5-120 MG 1 EACH TAB.ER.12H PO SCH (08:16)
[2022-06-07] MEDS: SCOPOLAMINE 1 MG/72 HR PATCH TRANSDERM SCH (08:16)
[2022-06-07 08:54] VITALS: RESP 20
[2022-06-07] MEDS: HYDROcodone/APAP 15 ML SOLUTION PO PRN (09:49)
--- NOTE | 2022-06-07 12:02 | P.DS ---
Providers Date of admission: 06/03/22 06:19 Expected date of discharge: 06/07/22 Attending physician: Kenji Whalen Consults: 06/03/22 10:15 Consult Physician Routine Consulting Provider: Riley Brunner Consult Reason/Comments: Medical management Do you want consulting provider notified?: Yes Primary care physician: Colleen Whalen - Discharge Diagnosis(es) (1) Severe obesity (BMI 35.0-39.9) with comorbidity Patient was admitted for elective sleeve gastrectomy on Friday. Surgery went without incident. The following day the patient's upper GI showed no evidence of leak or obstruction. Patient was started on a clear liquid diet. Today's postop patient experienced a relatively acute onset abdominal pain. The patient underwent a CAT scan abdomen and pelvis and was found to have a hematoma at the distal aspect of the sleeve. The patient's hemoglobin dropped as low as 8.9. Today is 9.2. Her pain improved in the first 12 hours or so after the bleeding episode. The patient did develop bruising on the abdominal wall which is not unexpected. She has done well for the last 24-48 hours. She would like to go home. She is oriented 20 ounces of liquids today. Will discharge. Follow-up Friday in the bariatric center. Current Visit: No Status: Acute Plan - Discharge Summary Discharge Rx Participant: Yes New Discharge Prescriptions: New bisacodyL [Dulcolax] 5 mg PO DAILY PRN #10 tab PRN Reason: Constipation Simethicone 40 mg/0.6 ml Drops [Mylicon Drops] 40 mg PO PCHS PRN #30 ml PRN Reason: Gas HYDROcodone/APAP 5-325MG [Valley 5-325] 1 tab PO Q6HR PRN 3 Days #12 tab PRN Reason: Analgesia Omeprazole [PriLOSEC] 40 mg PO DAILY #90 cap Ondansetron Odt [Zofran Odt] 4 mg PO Q8HR PRN #9 tab PRN Reason: Nausea No Action Sertraline [Zoloft] 200 mg PO QAM Simvastatin [Zocor] 40 mg PO HS Loratadine-Pseudoeph 10-240 mg [Claritin-D 24 Hour] 1 each PO DAILY Omeprazole [PriLOSEC] 20 mg PO QAM Oxybutynin Chloride [Oxybutynin Chloride ER] 10 mg PO HS hydroCHLOROthiazide 25 mg PO QAM Discharge Medication List Loratadine-Pseudoeph 10-240 mg [Claritin-D 24 Hour] 1 each PO DAILY 05/11/14 [History] Omeprazole [PriLOSEC] 20 mg PO QAM 05/11/14 [History] Sertraline [Zoloft] 200 mg PO QAM 05/11/14 [History] Simvastatin [Zocor] 40 mg PO HS 05/11/14 [History] Oxybutynin Chloride [Oxybutynin Chloride ER] 10 mg PO HS 08/03/19 [History] hydroCHLOROthiazide 25 mg PO QAM 10/25/21 [History] HYDROcodone/APAP 5-325MG [Valley 5-325] 1 tab PO Q6HR PRN 3 Days #12 tab 06/07/22 [Rx] Omeprazole [PriLOSEC] 40 mg PO DAILY #90 cap 06/07/22 [Rx] Ondansetron Odt [Zofran Odt] 4 mg PO Q8HR PRN #9 tab 06/07/22 [Rx] Simethicone 40 mg/0.6 ml Drops [Mylicon Drops] 40 mg PO PCHS PRN #30 ml 06/07/22 [Rx] bisacodyL [Dulcolax] 5 mg PO DAILY PRN #10 tab 06/07/22 [Rx] Follow up [facility](s[facility]Ref[facility] Patient Instructions/Handouts: Nutrition after Bariatric Surgery ([facility]), Laparoscopic Sleeve Gastrectomy ([facility])
[2022-06-07 14:29] VITALS: BP 123/73; PULSE 62; TEMP 98.1
--- NOTE | 2022-06-07 18:38 | P.PN ---
Subjective Progress Note Date: 06/07/22 - Reason for Consult Consult date: 06/03/22 Medical management postop sleep gastrectomy, history of hypertension - History of Present Illness This is a pleasant 57-year-old female who was recently admitted under surgical services and underwent laparoscopic sleeve gastrectomy with Dr. Rose and is in postop recovery. Patient reports she follows with Dr. Colleen rose as her primary care provider with a past medical history of asthma, gastroesophageal reflux disease, hyperlipidemia, hypertension. Patient reports she quit smoking earlier this year and occasionally drinks alcohol socially and denies any other illicit drug use. Patient currently maintained on hydrochlorothiazide for blood pressure control and will hold and monitor closely for any postoperative hypotension. Recommend repeat labs in the a.m. and if continuing to be hypertensive will resume medications. Patient is currently nothing by mouth except for ice chips per surgical protocol and diet will be advanced per surgery recommendations. Recommend incentive spirometer use at least 10 times every hour while awake and we will continue to follow with general surgery during hospitalization. Other appropriate home medications have been resumed. 06/04/2022 Patient is seen and evaluated in follow-up and is postop laparoscopic sleeve gastrectomy. Patient did undergo upper GI series and awaiting final report. Patient will be started on clear liquids per surgery services once report is finalized. Patient's blood pressure currently normotensive and will continue to hold hydrochlorothiazide and follow-up on repeat labs. Patient with an incentive spirometer at the bedside and recommended continue using at least 10 times every hour while awake. Continue with pain management and DVT prophylaxis per primary service. Patient is reporting some dyspepsia and acid reflux and will increase the Protonix to twice daily and also add simethicone and Maalox as needed. Encouraged increased activity as tolerated and patient reports she is up and walking. Patient reports no passing of gas and denies bowel movement yet. Patient is urinating. Patient is currently afebrile and denies chest pain or shortness of breath. 06/05/2022 Patient is seen and evaluated in follow-up today continuing to have abdominal distention and bloating reporting she continues to belch with feelings of gas being trapped and not passing gas nor bowel movements. Patient is voiding with no difficulties. Patient is afebrile and denies chest pain or shortness of breath. Patient has been started on bariatric clears and asking for more food although understands the protocol post LEEP gastrectomy. Blood pressure is normotensive and recommend continue holding hydrochlorothiazide at this time. Encouraged increase activity as tolerated and continued incentive spirometer u se. CT abdomen has been ordered by general surgery which is pending at this time. Repeat CBC shows a mildly elevated WBC of 11 recommend repeat labs 06/06/2022 Patient is seen this am with a drop in hemoglobin and also blood pressures running in the low 90's systolic. CT abdomen noted a large hematoma at the umbilical suture site and patient had been on lovenox. Surgery has discontinued this and being placed on sub q heparin for dvt prophylaxis and repeat cbc ordered. Acute blood loss anemia. Recommend holding her bp med as well. Patient denies dizziness or lightheadedness and has been getting up and walking more. Patient is continued on bariatric clear liquid and tolerating. Patient reports she does not care for the taste, but denies nausea or vomiting. Patient is passing some gas with no BM as of yet. Patient is afebrile and denies chest pain or shortness of breath. 06/07/2022 Patient is seen in follow up this morning with Dr. Rose at the bedside. Patient is tolerating more bariatric clears and no reports of nausea or vomiting noted. Patient hemoglobin repeated today and improved to 9.2 with no further blood loss noted. Patient with large diffuse bruising noted to the abdomen but remains soft and less tender today. Patient reports to passing gas and no bowel movement yet. Patient will be discontinued on hctz and encouraged follow up with pcp on discharge. Encouraged incentive spirometer use while at home as well. Patient is to be discharged today. Review of systems: Constitutional: No reports of fatigue, fever, or chills Cardiovascular: No reports of chest pain or palpitations Respiratory: No reports of shortness of breath or cough GI: No reports of nausea, vomiting, or diarrhea, reports passing gas and no bowel movement as of yet, reports bruising on the abdomen : No reports of dysuria or retention Neurovascular: No reports of weakness or numbness All medications have been reviewed PHYSICAL EXAMINATION: GENERAL: The patient is alert and oriented x4, Well developed, well nourished. Obese HEENT: Pupils are round and equally reacting to light. EOMI. no scleral icterus. No conjunctival pallor. Normocephalic, atraumatic. No pharyngeal erythema. No thyromegaly. CARDIOVASCULAR: S1 and S2 muffled PULMONARY: diminished breath sounds bilaterally otherwise clear to auscultation with no wheezing or rhonchi noted. ABDOMEN: soft. less tender on exam. obese. non- distended, bowel sounds. No palpable organomegaly. large ecchymosis noted around the umbilical area MUSCULOSKELETAL: No joint swelling or deformity. EXTREMITIES: No cyanosis, clubbing, or pedal edema. NEUROLOGICAL: Gross neurological examination did not reveal any focal deficits. SKIN: No rashes. Assessment: Status post laparoscopic sleeve gastrectomy postop day 4 acute blood loss anemia secondary to a large hematoma noted at the umbilicus surgical site, expected from recent surgery, possibly contributed by lovenox History of asthma, not in exacerbation Gastroesophageal reflux disease Hyperlipidemia Hypertension, currently normotensive History of anxiety/depression GI prophylaxis DVT prophylaxis Full code Plan: Recommend continue with current medications and appropriate home medications have been resumed. Patient does take hydrochlorothiazide which will be d iscontinued. recommend follow up with pcp on discharge. Acute blood loss anemia with a drop in hemoglobin down to the 8's and lovenox discontinued, hemoglobin is improved today and 9.2 Continue with bariatric clear liquid diet per surgery recommendations. Follow up with surgery early next week Recommend incentive spirometer at least 10 times every hour while awake even at home Encouraged increased activity as tolerated and patient reports she has been up and walking We will continue to monitor with general surgery Dr. Rose during hospitalization and would like to thank you for this consultation Patient is being discharged today. The impression and plan of care has been dictated by Gail Katz, nurse practitioner as directed. Dr. Vanesa MD I have performed a history and examination and MDM of this patient, discussed the same with the dictator, and agree with the dictator's assessment and plan as written ,documented as a scribe. Based on total visit time, I have performed more than 50% of the visit. Any additional findings or plans will be noted. Objective - Vital Signs Vital signs: Vital Signs Temp 98.0 F 06/07/22 08:00 Pulse 58 L 06/07/22 08:00 Resp 20 06/07/22 08:00 BP 111/57 06/07/22 08:00 Pulse Ox 97 06/07/22 08:00 FiO2 Intake & Output 06/06/22 06/07/22 06/07/22 18:59 06:59 18:59 Intake Total 480 960 Balance 480 960 Intake: Intake, IV Titration 480 720 Amount 0.9% NaCl with KCl 20 Meq 480 720 /l 1,000 ml @ 60 mls/hr IV .[id number] [facility] Rx#: [id number] Oral 240 Other: Voiding Method Toilet # Voids 3 - Labs CBC & Chem 7: 06/07/22 05:36 06/06/22 06:34 Labs: Abnormal Lab Results - Last 24 Hours (Table) 06/06/22 06/07/22 Range/Units 06:34 05:36 WBC 11.57 H (4.50-10.00) X 10*3/uL RBC 2.77 L 2.82 L (4.10-5.20) X 10*6/uL Hgb 8.9 L 9.2 L D (12.0-15.0) g/dL Hct 28.0 L 28.4 L (37.2-46.3) % MCV 101.1 H 100.5 H (80.0-97.0) fL MCH 32.1 H (27.0-32.0) pg MCHC 31.8 L (32.0-37.0) g/dL Neutrophils # 8.91 H (1.80-7.70) X 10*3/uL Eosinophils # 0 L (0.04-0.35) X 10*3/uL
== END 2022-06-07 15:10 | disposition home or self-care (01) | DRG 620 ==
LOC: 2ORMAIN 06:19 → 4SSUR 15:36
PROVIDERS: ADMIT Surgery; ATTEND Surgery
PROC: 8E0W4CZ Robotic Assisted Procedure of Trunk Region, Percutaneous Endoscopic Approach (ICD-10-PCS; principal; 2022-06-03 07:45)
PROC: 0BQT4ZZ Repair Diaphragm, Percutaneous Endoscopic Approach (ICD-10-PCS; principal; 2022-06-03 07:45)
PROC: 0DB64Z3 Excision of Stomach, Percutaneous Endoscopic Approach, Vertical (ICD-10-PCS; principal; 2022-06-03 07:45)
DX: E66.01 Morbid (severe) obesity due to excess calories (principal); D62 Acute posthemorrhagic anemia; I95.9 Hypotension, unspecified; Z68.38 Body mass index [BMI] 38.0-38.9, adult; M79.81 Nontraumatic hematoma of soft tissue; T45.515A Adverse effect of anticoagulants, initial encounter; F32.A Depression, unspecified; F41.9 Anxiety disorder, unspecified; E78.00 Pure hypercholesterolemia, unspecified; K21.9 Gastro-esophageal reflux disease without esophagitis; I10 Essential (primary) hypertension; K44.9 Diaphragmatic hernia without obstruction or gangrene; K29.70 Gastritis, unspecified, without bleeding; K59.00 Constipation, unspecified; M19.90 Unspecified osteoarthritis, unspecified site; Z79.899 Other long term (current) drug therapy; J45.909 Unspecified asthma, uncomplicated; Z87.891 Personal history of nicotine dependence; Z98.1 Arthrodesis status; Z71.3 Dietary counseling and surveillance; Z88.2 Allergy status to sulfonamides
CPT/HCPCS: 74177; 74240; 80048; 80051; 82310; 82565; 83735; 84100; 84520; 85025; 86850; 86900; 86901; 88307; 94640; 94760

== ENCOUNTER → 2022-06-11 | Outpatient (CLI) | payer BC ==
--- NOTE | 2022-06-12 06:52 | CONS ---
CONSULTATION CHIEF COMPLAINT: Morbid obesity. INTERVAL HISTORY: The patient returns after elective sleeve gastrectomy 1 week ago. The patient unfortunately did develop a small area of hematoma along the distal aspect of her sleeve. Doing well since last week when she was discharged. She was unclear how many ounces of liquids she was ingesting. Initially, she said 20 ounces, but after further questioning, she thought it was closer to 50 or 60 ounces. She is not tachycardic. Denies any significant pain. Only pain with getting up out of bed or chair. No dysphagia. PHYSICAL EXAMINATION: ABDOMEN: Soft, nondistended, mild right upper quadrant tenderness, hematoma in the periumbilical region. IMPRESSION: A 57-year-old female with post sleeve gastrectomy and hematoma along staple line. Doing gradually better. Continue liquid diet. We will have the patient follow up again in 1 week. MMODL / IJN: [id number] /
[2022-06-12 13:11] VITALS: BP 139/75; PULSE 75; TEMP 97.9; BMI 35.5
== END ==
LOC: BARWHC3 13:30
PROVIDERS: ATTEND Surgery
DX: E66.01 Morbid (severe) obesity due to excess calories (principal); Z98.84 Bariatric surgery status; T14.8XXA Other injury of unspecified body region, initial encounter; Z88.2 Allergy status to sulfonamides; F17.200 Nicotine dependence, unspecified, uncomplicated; Z68.35 Body mass index [BMI] 35.0-35.9, adult
CPT/HCPCS: 99211

== ENCOUNTER → 2022-06-18 | Outpatient (CLI) | payer BC ==
[2022-06-18 14:13] VITALS: BP 122/84; PULSE 79; RESP 16; TEMP 98.3; BMI 35.3
--- NOTE | 2022-06-18 14:42 | P.BASOAP ---
Subjective Progress Note Date: 06/18/22 Principal diagnosis: Morbid obesity Patient returns for postop check. Doing fairly well since her visit last week. Her liquid intake is stable or improved since last week. Her protein intake however has been poor. She says that most of the protein shakes and additives that she is using is foul tasting and she is having more trouble ingesting it. Denies nausea or vomiting. No significant pain. The abdominal bruising is improved. Heart rate is normal. Objective - Vital Signs Vital signs: Vital Signs Temp 98.3 F 06/18/22 14:11 Pulse 79 06/18/22 14:11 Resp 16 06/18/22 14:11 BP 122/84 06/18/22 14:11 Pulse Ox FiO2 Intake & Output 06/17/22 06/18/22 06/18/22 18:59 06:59 18:59 Weight 93.44 kg - Exam Abdomen: Soft, nondistended, ecchymosis improved, incisions clean and dry, nontender Assessment/Plan (1) Severe obesity (BMI 35.0-39.9) with comorbidity Narrative/Plan: Patient doing better at this time. Continue increasing protein and liquid intake. May return to work asked week. Plan repeat clinical exam 2 weeks. We'll check one month labs at that time. Plan: Date: 06/18/22 Initial Weight: 101.151 kg Initial BMI: 38.2 Current Weight: 93.44 kg Current BMI: 35.3 Type of Surgery: Vertical Sleeve Gastrectomy Total Volume in Band: Previous Volume: Volume Removed: Volume Added: Band Size:
== END ==
LOC: BARWHC3 13:48
PROVIDERS: ATTEND Surgery
DX: Z71.3 Dietary counseling and surveillance (principal); F17.200 Nicotine dependence, unspecified, uncomplicated; E66.01 Morbid (severe) obesity due to excess calories; Z88.2 Allergy status to sulfonamides; Z68.35 Body mass index [BMI] 35.0-35.9, adult
CPT/HCPCS: 97802; 99211

== ENCOUNTER → 2022-07-02 | Outpatient (CLI) | payer BC ==
[2022-07-02 15:39] VITALS: BP 139/85; PULSE 72; TEMP 98.2; BMI 34.3
--- NOTE | 2022-07-02 15:54 | P.BASOAP ---
Subjective Progress Note Date: 07/02/22 Principal diagnosis: Morbid obesity Patient returns for recheck. She was last seen 2 weeks ago. The bruising she had is gone. No pain. She is having some nausea and dry heaves occasionally mostly in the mornings. She is taking Zofran periodically. Still on her antiacids. She has lost 6 pounds since last visit. Objective - Vital Signs Vital signs: Vital Signs Temp 98.2 F 07/02/22 15:37 Pulse 72 07/02/22 15:37 Resp BP 139/85 07/02/22 15:37 Pulse Ox FiO2 Intake & Output 07/01/22 07/02/22 07/02/22 18:59 06:59 18:59 Weight 90.718 kg - Exam Abdomen: Soft, nontender, nondistended Assessment/Plan (1) Severe obesity (BMI 35.0-39.9) with comorbidity Narrative/Plan: Patient doing well at this time. Having some morning nausea. We'll refill Zofran prescription. Instructed patient to may be weighed in our 2 in the morning before trying her protein shake. She thinks it may be partly related to anxiety with significant burden at work. We'll check one month labs. Follow-up 4-6 weeks. Plan: Date: 07/02/22 Initial Weight: 101.151 kg Initial BMI: 38.2 Current Weight: 90.718 kg Current BMI: 34.3 Type of Surgery: Total Volume in Band: Previous Volume: Volume Removed: Volume Added: Band Size:
== END ==
LOC: BARWHC3 14:48
PROVIDERS: ATTEND Surgery
DX: E66.01 Morbid (severe) obesity due to excess calories (principal); R11.0 Nausea; F17.200 Nicotine dependence, unspecified, uncomplicated; Z68.38 Body mass index [BMI] 38.0-38.9, adult; Z71.3 Dietary counseling and surveillance; Z88.2 Allergy status to sulfonamides
CPT/HCPCS: 97803; 99211

== ENCOUNTER → 2022-07-13 | Outpatient (CLI) | payer BC ==
[2022-07-13 16:33] LABS: HCT 42.1 % (37.2-46.3); HGB 13.2 g/dL (12.0-15.0); MCH 31.7 pg (27.0-32.0); MCHC 31.4 g/dL (32.0-37.0); NRBC Per 100 WBC 0 /100 WBCS (0.0-0.0); Platelet Count 292 X 10*3/uL (140-440); RBC 4.17 X 10*6/uL (4.10-5.20); RDW 13.3 % (11.5-14.5); WBC 8.94 X 10*3/uL (4.50-10.00)
[2022-07-13 17:10] LABS: African American GFR (CKD) 93.5 (60.0-200.0); Albumin 4.1 g/dL (3.8-4.9); Albumin/Globulin Ratio 1.64 (1.60-3.17); Anion Gap 12.2 mmol/L (10.00-18.00); BUN/Creat Ratio 15.63 Ratio (12.00-20.00); Blood Urea Nitrogen 12.5 mg/dL (9.0-27.0); Calcium 9.4 mg/dL (8.7-10.3); Carbon Dioxide 24.8 mmol/L (20.0-27.5); Globulin 2.5 g/dL (1.6-3.3); Non-African American GFR(CKD) 80.7 (60.0-200.0); Potassium 4.2 mmol/L (3.5-5.5); Total Bilirubin 0.4 mg/dL (0.30-1.20); Total Protein 6.6 g/dL (6.2-8.2)
== END | disposition home or self-care (01) ==
LOC: LABWHC1 10:37
PROVIDERS: ATTEND Surgery
DX: E66.01 Morbid (severe) obesity due to excess calories (principal); K90.89 Other intestinal malabsorption; E55.9 Vitamin D deficiency, unspecified; E78.00 Pure hypercholesterolemia, unspecified; I10 Essential (primary) hypertension; R74.01 Elevation of levels of liver transaminase levels
CPT/HCPCS: 36415; 80053; 82306; 82607; 82746; 83540; 84425; 85027

== ENCOUNTER → 2022-08-13 | Outpatient (CLI) | payer BC ==
--- NOTE | 2022-08-13 22:36 | P.BASOAP ---
Subjective Progress Note Date: 08/13/22 Principal diagnosis: Morbid obesity Patient returns for recheck. She has lost 9 pounds since her last visit. She has regurgitation 1-2 times per week if she is not careful. Remains on antiacids. Patient requesting a refill for Zofran. Morning nausea treated well with milk she says. One month labs reviewed. Objective - Exam Abdomen: Soft, nontender, nondistended Assessment/Plan (1) Severe obesity (BMI 35.0-39.9) with comorbidity Narrative/Plan: Patient doing well after sleeve gastrectomy. We will provide refill for Zofran. Continue antiacids. Check three-month labs next visit. Follow-up 4-6 weeks. Plan: Date: Initial Weight: 101.151 kg Initial BMI: Current Weight: Current BMI: Type of Surgery: Total Volume in Band: Previous Volume: Volume Removed: Volume Added: Band Size:
[2022-08-14 09:45] VITALS: BP 143/87; PULSE 65; TEMP 98; BMI 32.8
== END ==
LOC: BARWHC3 14:44
PROVIDERS: ATTEND Surgery
DX: Z48.815 Encounter for surgical aftercare following surgery on the digestive system (principal); Z98.84 Bariatric surgery status; E66.01 Morbid (severe) obesity due to excess calories; Z68.32 Body mass index [BMI] 32.0-32.9, adult; Z88.2 Allergy status to sulfonamides; F17.200 Nicotine dependence, unspecified, uncomplicated
CPT/HCPCS: 99211

== ENCOUNTER → 2022-10-01 | Outpatient (CLI) | payer BC ==
--- NOTE | 2022-10-01 15:50 | P.BASOAP ---
Subjective Progress Note Date: 10/01/22 Principal diagnosis: Morbid obesity Patient returns for recheck. She was last seen 08/13. She has lost 6 pounds since last visit. No regurgitation or reflux. Only mild nausea at this time. Denies pain. Objective - Exam Abdomen: Soft, nontender, nondistended Assessment/Plan (1) Severe obesity (BMI 35.0-39.9) with comorbidity Narrative/Plan: Patient doing well postoperatively. Continue dietary and exercise regimen. Continue antiacids. We'll check three-month labs at this time. Follow-up 4-6 weeks. Plan: Date: Initial Weight: 101.151 kg Initial BMI: Current Weight: Current BMI: Type of Surgery: Total Volume in Band: Previous Volume: Volume Removed: Volume Added: Band Size:
[2022-10-01 16:07] VITALS: BP 139/86; PULSE 71; TEMP 98; BMI 31.7
== END ==
LOC: BARWHC3 15:02
PROVIDERS: ATTEND Surgery
DX: E66.01 Morbid (severe) obesity due to excess calories (principal); Z68.31 Body mass index [BMI] 31.0-31.9, adult; Z98.84 Bariatric surgery status; Z88.2 Allergy status to sulfonamides; F17.200 Nicotine dependence, unspecified, uncomplicated
CPT/HCPCS: 97803; 99211

== ENCOUNTER → 2022-10-21 | Outpatient (CLI) | payer BC ==
[2022-10-21 14:58] LABS: HGB 15.1 g/dL (12.0-15.0); MCH 31.2 pg (27.0-32.0); MCHC 31.5 g/dL (32.0-37.0); MCV 99.2 fL (80.0-97.0); Mean Platelet Volume 10.8 fL (9.5-12.2); NRBC Per 100 WBC 0 /100 WBCS (0.0-0.0); Platelet Count 266 X 10*3/uL (140-440); RBC 4.84 X 10*6/uL (4.10-5.20); RDW 14.3 % (11.5-14.5); WBC 11.28 X 10*3/uL (4.50-10.00)
[2022-10-21 15:18] LABS: ALT 26 U/L (8-44); AST 27 U/L (13-35); African American GFR (CKD) 96.3 (60.0-200.0); Albumin 4.6 g/dL (3.8-4.9); Albumin/Globulin Ratio 1.79 (1.60-3.17); Alkaline Phosphatase 102 U/L (41-126); BUN/Creat Ratio 14.72 Ratio (12.00-20.00); Blood Urea Nitrogen 11.5 mg/dL (9.0-27.0); Calcium 9.9 mg/dL (8.7-10.3); Chloride 102 mmol/L (96-109); Chol/HDL Ratio 3.67 Ratio; Globulin 2.5 g/dL (1.6-3.3); Glucose 92 mg/dL (70-110); Iron 157 ug/dL (50-170); LDL Cholesterol,Calculated 136.9 mg/dL (0.0-131.0); Non-African American GFR(CKD) 83.1 (60.0-200.0); Potassium 4.9 mmol/L (3.5-5.5); Sodium 141 mmol/L (135-145); Total Protein 7.1 g/dL (6.2-8.2)
== END ==
LOC: LABWHC1 09:39
PROVIDERS: ATTEND Surgery
DX: E66.01 Morbid (severe) obesity due to excess calories (principal); K90.89 Other intestinal malabsorption; E55.9 Vitamin D deficiency, unspecified
CPT/HCPCS: 36415; 80053; 80061; 82306; 82607; 82746; 83540; 84425; 85027

== ENCOUNTER → 2023-01-28 | Outpatient (CLI) | payer BC ==
[2023-01-28 15:34] VITALS: BP 141/85; PULSE 69; RESP 16; TEMP 98.1; BMI 30.2
--- NOTE | 2023-01-28 16:38 | P.BASOAP ---
Subjective Progress Note Date: 01/28/23 Principal diagnosis: Morbid obesity Patient returns for recheck. She is due for her 6 month lab work. She has lost 8 pounds. Nausea is improved. She is still exercising a lot. Sometimes she'll feel a lump in her lower chest with eating. Still taking antiacids. Objective - Vital Signs Vital signs: Vital Signs Temp 98.1 F 01/28/23 15:30 Pulse 69 01/28/23 15:30 Resp 16 01/28/23 15:30 BP 141/85 01/28/23 15:30 Pulse Ox FiO2 Intake & Output 01/27/23 01/28/23 01/28/23 18:59 06:59 18:59 Weight 79.832 kg - Exam Abdomen: Soft, nontender, nondistended Assessment/Plan (1) Severe obesity (BMI 35.0-39.9) with comorbidity Narrative/Plan: 57-year-old female with morbid obesity. Patient doing better at this time. Continue exercise and dietary regimen. Continue antiacids. Check 6 month labs. Follow-up 2 months. Plan: Date: 01/28/23 Initial Weight: 101.151 kg Initial BMI: 38.2 Current Weight: 79.832 kg Current BMI: 30.2 Type of Surgery: Vertical Sleeve Gastrectomy Total Volume in Band: Previous Volume: Volume Removed: Volume Added: Band Size:
== END ==
LOC: BARWHC3 14:45
PROVIDERS: ATTEND Surgery
DX: E66.01 Morbid (severe) obesity due to excess calories (principal); Z68.30 Body mass index [BMI] 30.0-30.9, adult; Z88.2 Allergy status to sulfonamides; F17.200 Nicotine dependence, unspecified, uncomplicated
CPT/HCPCS: 99211

== ENCOUNTER → 2023-03-18 | Outpatient (CLI) | payer BC ==
[2023-03-18 20:53] LABS: ALT 25 U/L (8-44); AST 23 U/L (13-35); Albumin 4.8 d/dL (3.8-4.9); Alkaline Phosphatase 89 U/L (41-126); Blood Urea Nitrogen 21.4 mg/dL (9.0-27.0); Carbon Dioxide 25.5 mmol/L (21.6-31.8); Chloride 101 mmol/L (96-109); Chol/HDL Ratio 3.33 Ratio; Globulin 2.4 d/dL (1.6-3.3); Glucose 92 mg/dL (70-110); LDL Cholesterol,Calculated 135.4 mg/dL (0.0-131.0); Potassium 5.3 mmol/L (3.5-5.5); Sodium 142 mmol/L (135-145); Total Bilirubin 0.3 mg/dL (0.3-1.2); Total Protein 7.2 d/dL (6.2-8.2)
[2023-03-18 23:49] LABS: HCT 42.4 % (37.2-46.3); HGB 13.7 d/dL (12.0-15.0); MCH 32.5 pg (27.0-32.0); MCHC 32.3 d/dL (32.0-37.0); MCV 100.7 FL (80.0-97.0); Mean Platelet Volume 10.8 FL (9.5-12.2); NRBC Per 100 WBC 0 X 10*3/uL (0.00-0.01); Platelet Count 256 X 10*3/uL (140-440); RBC 4.21 X 10*6/uL (4.10-5.20); RDW 13.5 % (11.5-14.5); WBC 9.04 X 10*3/uL (4.50-10.00)
== END | disposition home or self-care (01) ==
LOC: LABWHC1 14:26
PROVIDERS: ATTEND Surgery
DX: E66.01 Morbid (severe) obesity due to excess calories (principal); K90.89 Other intestinal malabsorption; E55.9 Vitamin D deficiency, unspecified
CPT/HCPCS: 36415; 80053; 80061; 82306; 82607; 82746; 84425; 85027

== ENCOUNTER → 2023-04-01 | Outpatient (CLI) | payer BC ==
[2023-04-01 12:55] VITALS: BP 163/77; PULSE 66; RESP 16; TEMP 98.2; BMI 29.8
--- NOTE | 2023-04-01 13:53 | P.BASOAP ---
Subjective Progress Note Date: 04/01/23 Principal diagnosis: Morbid obesity Patient returns for recheck. Last seen in January. He underwent sleeve gastrectomy last May. Still has occasional episodes of nausea in the morning. Still has some mild dysphagia after the first 2-3 bites of food. No GERD symptoms. No vomiting. She has lost 2 pounds since her last visit. She is walking more since she is out of school for summertime. Objective - Vital Signs Vital signs: Vital Signs Temp 98.2 F 04/01/23 12:52 Pulse 66 04/01/23 12:52 Resp 16 04/01/23 12:52 BP 163/77 04/01/23 12:52 Pulse Ox FiO2 Intake & Output 03/31/23 04/01/23 04/01/23 18:59 06:59 18:59 Weight 78.925 kg - Exam Abdomen: Soft, nontender, nondistended Assessment/Plan (1) Severe obesity (BMI 35.0-39.9) with comorbidity Narrative/Plan: 57-year-old female doing well after sleeve gastrectomy last May. Continue increasing activity. Monitor weight loss. Continue antiacid therapy here at follow-up 6-8 weeks. Recheck 1 year labs at that time. Plan: Date: 04/01/23 Initial Weight: 101.151 kg Initial BMI: 38.2 Current Weight: 78.925 kg Current BMI: 29.8 Type of Surgery: Vertical Sleeve Gastrectomy Total Volume in Band: Previous Volume: Volume Removed: Volume Added: Band Size:
== END ==
LOC: BARWHC3 12:38
PROVIDERS: ATTEND Surgery
DX: E66.01 Morbid (severe) obesity due to excess calories (principal); F17.200 Nicotine dependence, unspecified, uncomplicated; Z98.84 Bariatric surgery status; Z68.29 Body mass index [BMI] 29.0-29.9, adult; Z88.2 Allergy status to sulfonamides
CPT/HCPCS: 99211

== ENCOUNTER → 2023-05-02 | Outpatient (CLI) | payer BC ==
--- NOTE | 2023-05-05 07:46 | MM ---
Reason for Exam: Screening (asymptomatic). Last mammogram was performed 1 year(s) and 1 month(s) ago. Patient History: Menarche at age 11. First Full-Term at age 28. Late child-bearing (after 30). Postmenopausal. Patient used Hormonal Contraceptives for 3 years. Risk Values: Dee 5 year model risk: 1.9%. NCI Lifetime model risk: 10.2%. Prior Study Comparison: 12/08/2019 Bilateral Screening Mammogram, [facility]. 01/25/2021 Bilateral Screening Mammogram, [facility]. 03/21/2022 Bilateral MG 3D screening mammo w/cad, [facility]. Tissue Density: The breast tissue is almost entirely fat. Findings: Analyzed By CAD. There is no suspicious group of microcalcifications or new suspicious mass in either breast. Overall Assessment: Negative, BI-RAD 1 Management: Screening Mammogram of both breasts in [address] [facility] will attempt to contact patient to return for supplemental views and ultrasound if indicated. Patient should continue monthly self-breast exams. A clinical breast exam by your physician is recommended on an annual basis. This exam should not preclude additional follow-up of suspicious palpable abnormalities. Note on Dee scores and lifetime risk: 1. A Dee score greater than 3% is considered moderate risk. If this is the case, consider specialist referral to assess eligibility for a risk reducing agent. 2. If overall lifetime risk for the development of breast cancer is 20% or higher, the patient may qualify for future screening with alternating mammogram and breast MRI. Electronically signed and approved by: Gavin Zimmerman DO
== END | disposition home or self-care (01) ==
LOC: RADMAMWWP 08:08
PROVIDERS: ATTEND Obstetrics & Gynecology
DX: Z12.31 Encounter for screening mammogram for malignant neoplasm of breast (principal); Z78.0 Asymptomatic menopausal state
CPT/HCPCS: 77063; 77067

== ENCOUNTER → 2023-06-17 | Outpatient (CLI) | payer BC ==
[2023-06-17 15:14] VITALS: BP 150/88; PULSE 68; RESP 16; TEMP 98.1; BMI 28.6
--- NOTE | 2023-06-17 15:23 | P.BASOAP ---
Subjective Progress Note Date: 06/17/23 Principal diagnosis: Morbid obesity 58-year-old female here for bariatric follow-up. Underwent sleeve gastrectomy 1 year ago. She was last seen in March. Overall doing quite well. She has lost 7 pounds. She joined a gym. Work has been stressful. She is due for annual blood work. Mild nausea at times. She has had 2 episodes of vomiting after eating too quickly. Still on antiacids which she says she still needs. Objective - Vital Signs Vital signs: Vital Signs Temp 98.1 F 06/17/23 15:06 Pulse 68 06/17/23 15:06 Resp 16 06/17/23 15:06 BP 150/88 06/17/23 15:06 Pulse Ox FiO2 Intake & Output 06/16/23 06/17/23 06/17/23 18:59 06:59 18:59 Weight 75.75 kg - Exam Abdomen: Soft, nontender, nondistended Assessment/Plan (1) Severe obesity (BMI 35.0-39.9) with comorbidity Narrative/Plan: Patient doing well after sleeve gastrectomy 1 year ago. Check annual labs. Continue dietary and exercise regimen. Continue antiacids. Plan: Date: 06/17/23 Initial Weight: 101.151 kg Initial BMI: 38.2 Current Weight: 75.75 kg Current BMI: 28.6 Type of Surgery: Vertical Sleeve Gastrectomy Total Volume in Band: Previous Volume: Volume Removed: Volume Added: Band Size:
== END ==
LOC: BARWHC3 14:42
PROVIDERS: ATTEND Surgery
DX: E66.01 Morbid (severe) obesity due to excess calories (principal); F17.200 Nicotine dependence, unspecified, uncomplicated; Z68.28 Body mass index [BMI] 28.0-28.9, adult; Z98.84 Bariatric surgery status; Z71.3 Dietary counseling and surveillance; Z48.815 Encounter for surgical aftercare following surgery on the digestive system; Z88.2 Allergy status to sulfonamides
CPT/HCPCS: 99211

== ENCOUNTER → 2023-07-29 | Outpatient (CLI) | payer BC ==
[2023-07-29 18:59] LABS: HCT 47.2 % (37.2-46.3); HGB 15.1 d/dL (12.0-15.0); MCH 32.6 pg (27.0-32.0); MCV 101.9 FL (80.0-97.0); Mean Platelet Volume 11.2 FL (9.5-12.2); NRBC Per 100 WBC 0 X 10*3/uL (0.00-0.01); Platelet Count 259 X 10*3/uL (140-440); RBC 4.63 X 10*6/uL (4.10-5.20); RDW 13.1 % (11.5-14.5); WBC 10.59 X 10*3/uL (4.50-10.00)
[2023-07-29 21:36] LABS: ALT 28 U/L (8-44); AST 23 U/L (13-35); Albumin 4.7 d/dL (3.8-4.9); Albumin/Globulin Ratio 1.88 Ratio (1.60-3.17); Alkaline Phosphatase 86 U/L (41-126); BUN/Creat Ratio 26.43 Ratio (12.00-20.00); Blood Urea Nitrogen 18.5 mg/dL (9.0-27.0); Calcium 10.1 mg/dL (8.7-10.3); Carbon Dioxide 26.8 mmol/L (21.6-31.8); Chloride 101 mmol/L (96-109); Globulin 2.5 d/dL (1.6-3.3); Glucose 95 mg/dL (70-110); Iron 87 UG/DL (50-170); Potassium 5.4 mmol/L (3.5-5.5); Sodium 139 mmol/L (135-145); Total Bilirubin 0.3 mg/dL (0.3-1.2); Total Protein 7.2 d/dL (6.2-8.2)
== END | disposition home or self-care (01) ==
LOC: LABWHC1 14:46
PROVIDERS: ATTEND Surgery
DX: E55.9 Vitamin D deficiency, unspecified (principal); K90.89 Other intestinal malabsorption
CPT/HCPCS: 36415; 80053; 82306; 82607; 82746; 83540; 84425; 85027

== ENCOUNTER → 2023-10-21 | Outpatient (CLI) | payer BC ==
--- NOTE | 2023-10-21 18:30 | MR ---
EXAMINATION TYPE: MR brain and iac wo/w con DATE OF EXAM: 10/21/2023 COMPARISON: None HISTORY: Right side hearing loss TECHNIQUE: Multiplanar, multisequence images of the brain and brainstem is performed without and with IV contras t, utilizing 7.5 mL intravenous Gadavist . FINDINGS: The ventricles, basal cisterns and sulci over the convexities are within normal limits and there is n o mass effect or shift of the midline structures. There is multifocal abnormal increased signal intensity on the FLAIR and T2-weighted images in the pe riventricular white matter both cerebral hemispheres and within the central amber consistent with forensic science technician nico ischemic changes. Based on diffusion-weighted imaging, there is no diffusion restriction or acute ischemic event. The internal auditory canals and contents and cerebellar pontine angles appear normal without mass or pathological enhancement. There is no pathological enhancement throughout the brain parenchyma. The intraorbital contents are normal and symmetric. Visualized paranasal sinuses and mastoid air cell s are well aerated. IMPRESSION: 1. Moderate chronic ischemic changes. 2. No acute ischemic event. 3. No abnormality of the internal auditory canals or cerebellar pontine angles. 4. mastoid air cells and paranasal sinuses are well aerated. 5. No mass effect, mass or shift of midline structures.
== END | disposition home or self-care (01) ==
LOC: RADMRIMAIN 16:21
PROVIDERS: ATTEND Otolaryngology
DX: I67.82 Cerebral ischemia (principal); H90.3 Sensorineural hearing loss, bilateral
CPT/HCPCS: 70553; A9585

== ENCOUNTER → 2023-12-16 | Outpatient (CLI) | payer BC ==
[2023-12-16 15:21] VITALS: BP 154/74; PULSE 64; RESP 16; TEMP 97.8; BMI 29.5
--- NOTE | 2023-12-16 15:34 | P.BASOAP ---
Subjective Progress Note Date: 12/16/23 Principal diagnosis: Morbid obesity 58-year-old female returns for recheck. Last seen in June. She is 1.5 years out from sleeve gastrectomy. She has gained 5 pounds. Still exercising. Still feels restricted. Still having intermittent nausea maybe 1-2 times per week. Has dry heaves maybe once per month. Frequently when brushing her teeth. Patient says that she thinks stress is contributing to that. Her GERD symptoms are controlled with antiacids. She does take Zofran rarely. Objective - Vital Signs Vital signs: Vital Signs Temp 97.8 F 12/16/23 15:01 Pulse 64 12/16/23 15:01 Resp 16 12/16/23 15:01 BP 154/74 12/16/23 15:01 Pulse Ox FiO2 Intake & Output 12/15/23 12/16/23 12/16/23 18:59 06:59 18:59 Weight 78.018 kg - Exam Abdomen: Soft, nontender, nondistended Assessment/Plan (1) Severe obesity (BMI 35.0-39.9) with comorbidity Narrative/Plan: Patient doing well after previous sleeve gastrectomy. Will refill both omeprazole and Zofran. Continue dietary and exercise regimen. Minimize stress. Follow-up June. Check to your labs at that time. Plan: Date: 12/16/23 Initial Weight: 101.151 kg Initial BMI: 38.2 Current Weight: 78.018 kg Current BMI: 29.5 Type of Surgery: Vertical Sleeve Gastrectomy Total Volume in Band: Previous Volume: Volume Removed: Volume Added: Band Size:
== END | disposition home or self-care (01) ==
LOC: BARWHC3 14:46
PROVIDERS: ATTEND Surgery
DX: E66.01 Morbid (severe) obesity due to excess calories (principal); F17.200 Nicotine dependence, unspecified, uncomplicated; K21.9 Gastro-esophageal reflux disease without esophagitis; Z68.38 Body mass index [BMI] 38.0-38.9, adult; Z88.2 Allergy status to sulfonamides; Z98.84 Bariatric surgery status
CPT/HCPCS: 99211

== ENCOUNTER → 2024-05-04 | Outpatient (CLI) | payer BC ==
--- NOTE | 2024-05-04 14:00 | BD ---
EXAMINATION TYPE: Axial Bone Density DATE OF EXAM: 05/04/2024 CLINICAL HISTORY: 58 years old Female. ICD-10 CODE: Z78.0 POST MENOPAUSAL WITHOUT HRT Height: 5 ft 3 1/2 in Weight: 152 FRAX RISK QUESTIONS: Alcohol (3 or more units per day): no Family History (Parent hip fracture): no Glucocorticoids (More than 3mos): no (Ex: prednisone, prednisolone, methylprednisolone, dexamethasone, and hydrocortisone). History of Fracture in Adulthood: no Secondary Osteoporosis: 1. Type 1 Diabetes: no 2. Hyperthyroidism: no 3. Menopause before 45: around 4. Malnutrition: no 5. Chronic liver disease: no Rheumatoid Arthritis: no Current Tobacco Use: no RISK FACTORS HISTORY OF: Surgery to Spine/Hip(right/left)/Wrist (right/left): cerv surg 20 years ago MEDICATIONS: Thyroid Medications: none Osteoporosis Medications: none EXAM MEASUREMENTS: Bone mineral densitometry was performed using the Second Sight System. Bone mineral density as measured about the Lumbar spine is: ----- L1-L4(G/cm2): 1.276 T Score Values are as follows: ----- L1: 0.1 ----- L2: 0.0 ----- L3: 0.1 ----- L4: 2.2 ----- L1-L4: 0.8 Z Score Values are as follows: ----- L1: 1.3 ----- L2: 1.1 ----- L3: 1.2 ----- L4: 3.3 ----- L1-L4: 1.9 Bone mineral density has: decreased -0.8 % since study of: 2019 Bone mineral density about the R hip (g/cm2): 0.876 Bone mineral density about the L hip (g/cm2): 0.916 T Score values are as follows: -----R Neck: -1.2 -----L Neck: -0.9 -----R Total: -0.9 -----L Total: -0.9 Z Score values are as follows: -----R Neck: 0.0 -----L Neck: 0.3 -----R Total: 0.0 -----L Total: 0.0 Bone mineral density has: decreased -16.5 % since study of: 2019 FRAX%s: The graph provided illustrates a 7.5 % chance for a major osteoporotic fx and a 0.5 % chance for the hips probability for fx in 10 years time. IMPRESSION: Normal (Values between +1 and -1 indicate normal bone mass). Consider repeating this study in 5 year s or sooner if there is some new clinical indication. NOTE: T-SCORE=SD OF THE YOUNG ADULT MEAN.
--- NOTE | 2024-05-05 13:04 | MM ---
Reason for Exam: Screening (asymptomatic). Last screening mammogram was performed 12 month(s) ago. Patient History: Menarche at age 11. First Full-Term at age 28. Late child-bearing (after 30). Postmenopausal. Patient used Hormonal Contraceptives for 3 years. Risk Values: Dee 5 year model risk: 2.0%. NCI Lifetime model risk: 10.0%. Prior Study Comparison: 01/25/2021 Bilateral Screening Mammogram, [facility]. 03/21/2022 Bilateral MG 3D screening mammo w/cad, [facility]. 05/02/2023 Bilateral MG 3D screening mammo w/cad, [facility]. Tissue Density: The breasts are almost entirely fatty. Findings: Analyzed By CAD. Right breast: There is no suspicious group of microcalcifications or new suspicious mass. Left breast: There is no suspicious group of microcalcifications or new suspicious mass. Overall Assessment: Negative, BI-RAD 1 Management: Screening Mammogram of both breasts in [address] [facility] will attempt to contact patient to return for supplemental views and ultrasound if indicated. Patient should continue monthly self-breast exams. A clinical breast exam by your physician is recommended on an annual basis. This exam should not preclude additional follow-up of suspicious palpable abnormalities. Note on Dee scores and lifetime risk: 1. A Dee score greater than 3% is considered moderate risk. If this is the case, consider specialist referral to assess eligibility for a risk reducing agent. 2. If overall lifetime risk for the development of breast cancer is 20% or higher, the patient may qualify for future screening with alternating mammogram and breast MRI. Electronically signed and approved by: Gavin Zimmerman DO
== END | disposition home or self-care (01) ==
LOC: RADMAMWWP 12:38
PROVIDERS: ATTEND Family Medicine
DX: Z12.31 Encounter for screening mammogram for malignant neoplasm of breast (principal); R92.313 Mammographic fatty tissue density, bilateral breasts; M85.88 Other specified disorders of bone density and structure, other site; Z78.0 Asymptomatic menopausal state
CPT/HCPCS: 77063; 77067; 77080

== ENCOUNTER → 2024-06-15 | Outpatient (CLI) | payer BC ==
[2024-06-15 14:28] VITALS: BP 135/85; PULSE 70; RESP 16; TEMP 98; BMI 25.5
--- NOTE | 2024-06-15 14:45 | P.BASOAP ---
Subjective Progress Note Date: 06/15/24 Principal diagnosis: Morbid obesity Patient returns for annual checkup. Surgery 2 years ago. She was last seen in December. Since then she has lost 23 pounds. Says she is eating more vegetables and overall eating healthier. She is more active. Still takes omeprazole daily. Still takes Zofran 1-2 times a week for intermittent nausea. She had an episode of nausea this morning that led to bilious mucousy emesis. Says this happens about every 1 to 2 months. Objective - Vital Signs Vital signs: Vital Signs Temp 98 F 06/15/24 14:26 Pulse 70 06/15/24 14:26 Resp 16 06/15/24 14:26 BP 135/85 06/15/24 14:26 Pulse Ox FiO2 Intake & Output 06/14/24 06/15/24 06/15/24 18:59 06:59 18:59 Weight 67.585 kg - Exam Abdomen: Soft, nontender, nondistended Assessment/Plan (1) Severe obesity (BMI 35.0-39.9) with comorbidity Narrative/Plan: Patient doing well after previous sleeve gastrectomy. BMI down to 25. Continue dietary and exercise regimen. Continue antiacids and intermittent antiemetics. Check annual labs. Follow-up 1 year. Plan: Date: 06/15/24 Initial Weight: 101.151 kg Initial BMI: 38.2 Current Weight: 67.585 kg Current BMI: 25.5 Type of Surgery: Vertical Sleeve Gastrectomy Total Volume in Band: Previous Volume: Volume Removed: Volume Added: Band Size:
== END ==
LOC: BARWHC3 14:17
PROVIDERS: ATTEND Surgery
CPT/HCPCS: 99211

== ENCOUNTER → 2024-07-05 | Outpatient (CLI) | payer BC ==
[2024-07-06 02:13] LABS: MCH 32.4 pg (27.0-32.0); MCHC 31.7 g/dL (32.0-37.0); MCV 102.2 FL (80.0-97.0); Mean Platelet Volume 10.9 FL (9.5-12.2); NRBC Per 100 WBC 0 X 10*3/uL (0.00-0.01); Platelet Count 164 X 10*3/uL (140-440); RBC 4.01 X 10*6/uL (4.10-5.20); RDW 13.1 % (11.5-14.5); WBC 7.35 X 10*3/uL (4.50-10.00)
[2024-07-06 02:59] LABS: ALT 102 U/L (8-44); AST 28 U/L (13-35); Albumin 3.7 g/dL (3.8-4.9); Albumin/Globulin Ratio 1.48 Ratio (1.60-3.17); Alkaline Phosphatase 104 U/L (41-126); BUN/Creat Ratio 25.71 Ratio (12.00-20.00); Calcium 8.9 mg/dL (8.7-10.3); Carbon Dioxide 23.2 mmol/L (21.6-31.8); Chloride 105 mmol/L (96-109); Globulin 2.5 g/dL (1.6-3.3); Glucose 82 mg/dL (70-110); Iron 40 UG/DL (50-170); Potassium 4.3 mmol/L (3.5-5.5); Sodium 141 mmol/L (135-145); Total Bilirubin 0.4 mg/dL (0.3-1.2); Total Protein 6.2 g/dL (6.2-8.2)
== END | disposition home or self-care (01) ==
LOC: LABWHC1 15:28
PROVIDERS: ATTEND Surgery
DX: E66.01 Morbid (severe) obesity due to excess calories
CPT/HCPCS: 36415; 80053; 82306; 82607; 82746; 83540; 84425; 85027

== ENCOUNTER 2024-07-06 11:00 | Day surgery (SDC) | payer BC ==
[2024-07-05 09:58] VITALS: BMI 24.0
[~2024-07-06 11:00] MED LIST changes: -ACETAMINOPHEN TAB 500 MG TAB PO PRN; -DEXAMETHASONE SOD PHOSPHATE 4 MG/ML 1 ML VIAL IV ONE; -ENOXAPARIN 40 MG/0.4 ML SYRINGE SQ PRN; +LIDOCAINE 1% (10MG/ML) FOR IV START INTRADERMA PRN; -ONDANSETRON 4 MG/2 ML VIAL IVP ONE; -ONDANSETRON 4 MG/2 ML VIAL IVP PRN
[2024-07-06 13:18] VITALS: TEMP 98.4
[2024-07-06] MEDS: IV FLUID CONTINUATION 1,000 ML IV ONE (13:21)
[2024-07-06] MEDS ORDERED: PROPOFOL 10 MG/ML 20 ML VIAL IV ONE (13:54)
[2024-07-06] MEDS ORDERED: LIDOCAINE 2% (PF) 20 MG/ML 5 ML VIAL ONE (13:54)
--- NOTE | 2024-07-06 14:23 | P.GSHP ---
History of Present Illness H&P Date: 07/06/24 Chief Complaint: Screening with history of polyps 59-year-old female here for colonoscopy. Last colonoscopy 5 years ago. Patient has had polyps on the last 2 colonoscopies. No bowel complaints. No family history of colon cancer. Past Medical History Past Medical History: GERD/Reflux, Hyperlipidemia, Hypertension Additional Past Medical History / Comment(s): seasonal allergies History of Any Multi-Drug Resistant Organisms: None Reported Date of last positivie culture/infection: None MDRO Source:: None Past Surgical History: Bariatric Surgery, Hernia Repair, Tubal Ligation, Uterine Ablation Additional Past Surgical History / Comment(s): neck surgery c5,6,7 with fusion plate and screws. sleeve gastrectomy 06-03-22 Past Anesthesia/Blood Transfusion Reactions: Motion Sickness, Postoperative Nausea & Vomiting (PONV) Additional Past Anesthesia/Blood Transfusion Reaction / Comment(s): no hx blood transfusion Smoking Status: Former smoker - Past Family History Mother Family Medical History: CVA/TIA Brother(s) Family Medical History: Blood Disorder Additional Family Medical History / Comment(s): hx hemorrhaging and brain bleeds- Medications and Allergies Home Medications Medication Instructions Recorded Confirmed Type Loratadine-Pseudoeph 10-240 mg 1 each PO DAILY 05/11/14 07/05/24 History [Claritin-D 24 Hour] Sertraline [Zoloft] 200 mg PO QAM 05/11/14 07/05/24 History Simvastatin [Zocor] 40 mg PO HS 05/11/14 07/05/24 History Omeprazole [PriLOSEC] 40 mg PO DAILY #120 cap 12/16/23 07/05/24 Rx Ondansetron [Zofran] 4 mg PO Q8HR PRN #120 tab 12/16/23 07/05/24 Rx Allergies Allergy/AdvReac Type Severity Reaction Status Date / Time Sulfa (Sulfonamide Allergy Rash/Hives Verified 07/06/24 13:09 Antibiotics) Surgical - Exam Vital Signs Temp Pulse Resp BP Pulse Ox 98.4 F 69 15 133/84 98 07/06/24 13:17 07/06/24 13:17 07/06/24 13:17 07/06/24 13:17 07/06/24 13:17 Physical exam: General: Well-developed, well-nourished HEENT: Normocephalic, sclerae nonicteric Abdomen: Nontender, nondistended Extremities: No edema Neuro: Alert and oriented Assessment and Plan (1) Colon cancer screening Narrative/Plan: Will proceed with colonoscopy at this time. Current Visit: No Status: Acute Code(s): Z12.11 - ENCOUNTER FOR SCREENING FOR MALIGNANT NEOPLASM OF COLON SNOMED Code(s): 036364433
--- NOTE | 2024-07-06 14:39 | P.PCN ---
Date of Procedure: 07/06/24 Procedure(s) Performed: PREOPERATIVE DIAGNOSIS: Colon cancer screening with history of polyps POSTOPERATIVE DIAGNOSIS: Multiple rectal polyps, diverticulosis PROCEDURE: Colonoscopy with snare polypectomy ANESTHESIA: MAC SURGEON: Kenji Whalen M.D. SPECIMENS: Polyps ENDOSCOPIC PROCEDURE: The patient was placed on the endoscopy table in the left decubitus position. The Olympus colonoscope was inserted into the anus and passed under direct visualization to the base of the cecum. The appendiceal orifice was visualized. From that point the scope was slowly withdrawn inspecting all surfaces carefully. There were no neoplastic inflammatory or polypoid lesions throughout the cecum, ascending, transverse, descending, and sigmoid colon. In the rectum multiple small polyps were noted and removed using the snare with cautery technique. These may simply be hyperplastic in nature. The patient had mild scattered diverticulosis. Digital rectal examination was normal. The patient was taken to the recovery room in stable condition per anesthesia guidelines. RECOMMENDATIONS: Await biopsy results. Will contact patient with timing of next colonoscopy.
[2024-07-06 14:50] VITALS: RESP 16
[2024-07-06 15:10] VITALS: BP 110/72; PULSE 60
== END 2024-07-06 15:36 | disposition home or self-care (01) ==
LOC: ORWHC2ENDO 11:00
PROVIDERS: ATTEND Surgery
DX: Z12.11 Encounter for screening for malignant neoplasm of colon (principal); K62.1 Rectal polyp; K57.30 Diverticulosis of large intestine without perforation or abscess without bleeding; E78.5 Hyperlipidemia, unspecified; I10 Essential (primary) hypertension; K21.9 Gastro-esophageal reflux disease without esophagitis; Z86.010 Personal history of colon polyps; Z79.899 Other long term (current) drug therapy; Z88.2 Allergy status to sulfonamides; Z98.84 Bariatric surgery status; Z87.891 Personal history of nicotine dependence; Z98.1 Arthrodesis status
CPT/HCPCS: 88305; 45385; J2704; J2003

== ENCOUNTER → 2025-05-05 | Outpatient (CLI) | payer BC ==
--- NOTE | 2025-05-06 13:03 | MM ---
Reason for Exam: Screening (asymptomatic). Last screening mammogram was performed 12 month(s) ago. Patient History: Menarche at age 11. First Full-Term at age 28. Late child-bearing (after 30). Postmenopausal. Patient used Hormonal Contraceptives for 3 years. Risk Values: Dee 5 year model risk: 2.0%. NCI Lifetime model risk: 9.7%. Prior Study Comparison: 03/21/2022 Bilateral MG 3D screening mammo w/cad, [facility]. 05/02/2023 Bilateral MG 3D screening mammo w/cad, [facility]. 05/04/2024 Bilateral MG 3D screening mammo w/cad, [facility]. Tissue Density: There are scattered areas of fibroglandular density. Findings: Analyzed By CAD. Chronic nodularity on both sides. There is no suspicious group of microcalcifications or new suspicious mass in either breast. Overall Assessment: Benign, BI-RAD 2 Management: Screening Mammogram of both breasts in 1 year. Patient should continue monthly self-breast exams. A clinical breast exam by your physician is recommended on an annual basis. This exam should not preclude additional follow-up of suspicious palpable abnormalities. Note on Dee scores and lifetime risk: 1. A Dee score greater than 3% is considered moderate risk. If this is the case, consider specialist referral to assess eligibility for a risk reducing agent. 2. If overall lifetime risk for the development of breast cancer is 20% or higher, the patient may qualify for future screening with alternating mammogram and breast MRI. [facility], , 05/06/2025 1:00 PM. Electronically signed and approved by: Eleni Mercedes M.D. Radiologist
== END | disposition home or self-care (01) ==
LOC: RADMAMWWP 11:25
PROVIDERS: ATTEND Family Medicine
DX: Z12.31 Encounter for screening mammogram for malignant neoplasm of breast (principal); R92.323 Mammographic fibroglandular density, bilateral breasts; Z78.0 Asymptomatic menopausal state; Z92.0 Personal history of contraception
CPT/HCPCS: 77063; 77067